=== PATIENT | female | born 1990 | race Caucasian/White ===

== ENCOUNTER 2016-11-06 10:07 | Inpatient (IN) | payer BC ==
[2016-11-06] VITALS (19 sets, daily range): BP systolic 120–208; BP diastolic 58–118
[~2016-11-06] VITALS: Ht 152.4 cm; Wt 96.2 kg
[~2016-11-06 10:07] MED LIST: HYOS0.1217 PO; ONDA-42 SL; ONDA8TAB13 PO; PNT40TEC PO; TRAM50TA2 PO; bcp
--- OUTSIDE RECORDS SUMMARY | 2016-11-06 10:12 | XMS REPORT | Continuity of Care Document ---
Author Author [facility] Organization [facility] Address Unknown Phone Unavailable Care Team Providers Care Primary Health Organisation Manager Name Role Phone NO, LOCAL PHYSICIAN PCP Unavailable Insurance Providers Payer Name Policy Number Subscriber Name Relationship [employer] [id number] Mckayla Lemons 19 Self / Same As Patient Advance Directives Directive Response Recorded Date/Time Advance Directives No 03/07/15 2:20pm Resuscitation Status Full Code 03/07/15 2:20pm Problems Medical Problems Problem Onset Date Status Mesenteric adenitis Unknown Active Epigastric abdominal pain Unknown Active Fever Unknown Active Mesenteric adenitis Unknown Active Epigastric abdominal pain Unknown Active Medications Medication Dose Route Sig Days/Qty Instructions Order Date Discontinued Date Status [bcp] 01/28/14 Active Tramadol Hcl 50 Mg PO EVERY 4HRS PRN PAIN 10 Qty 01/28/14 03/07/15 Discontinued Ondansetron 8 Mg PO EVERY 6 HOURS PRN NAUSEA/VOMITING 10 Qty 01/28/14 03/07/15 Discontinued Ondansetron Hcl 4 Mg SL EVERY 4HRS 10 Qty FOR NAUSEA AND VOMITING Active Pantoprazole Sod 40 Mg PO DAILY 10 Qty 03/07/15 Active Hyoscyamine Sulfate (Levsin) 1-2 Each PO EVERY 4HRS PRN ABDOMINAL PAIN 30 Qty 03/07/15 Active Social History Social History Problem Response Recorded Date/Time Alcohol Use Occasionally Uses 03/07/2015 2:20pm Recreational Drug Use No 03/07/2015 2:20pm Recent Foreign Travel No 03/07/2015 2:20pm Recent Infectious Disease Exposure No 03/07/2015 2:20pm Hospitalization with Isolation Denies 03/07/2015 2:20pm Smoking Status Never a Smoker 03/07/2015 2:20pm Do you dip or chew tobacco? No 03/07/2015 2:20pm Query Response Start Date Stop Date Smoking Status Never a Smoker Hospital Discharge Instructions No hospital discharge instructions. Plan of Care No plan of care. Functional Status No functional status results. Allergies, Adverse Reactions, Alerts Allergen Type Severity Reaction Status Last Updated Sulfa (Sulfonamide Antibiotics) ([id number]) Adverse Reaction Intermediate Active 01/28/14 Immunizations No immunization records. Vital Signs Acute Vital Signs Vital Response Date/Time Temperature (Fahrenheit) 100.3 degrees F (97.6 - 99.5) Temperature (Calculated Celsius) 37.54696 degrees C (36.4 - 37.5) Temperature Source Temporal Pulse Rate (adult) 115 bpm (60 - 90) Respiratory Rate 20 bpm (12 - 24) O2 Sat by Pulse Oximetry 99 % (88 - 100) Blood Pressure 145/86 mm Hg Pain Pain Intensity 8 Height (Feet) 5 feet Height (Inches) 0 inches Height (Calculated Centimeters) 152.803409 cm Weight (Pounds) 180 pounds Weight (Calculated Grams) 55210.627 gm Weight (Calculated Kilograms) 81.004012 kilograms Calculated BMI 35.15 Results Laboratory Results Test Name Result Units Flags Reference Collection Date/Time Result Date/ Time Comments White Blood Count 10.2 10^3/uL 4.3-11.0 03/07/2015 12:25am 03/07/2015 12:37am Red Blood Count 4.78 10^6/uL 4.35-5.85 03/07/2015 12:2503/07/2015 12 :37am Hemoglobin 13.9 G/DL 11.5-16.0 03/07/2015 12:2503/07/2015 12:37am Hematocrit 40 % 35-52 03/07/2015 12:2503/07/2015 12:37am Mean Corpuscular Volume 84 FL 80-99 03/07/2015 12:2503/07/2015 12: 37am Mean Corpuscular Hemoglobin 29 PG 25-34 03/07/2015 12:03/07/2015 12:37am Mean Corpuscular Hemoglobin Concent 35 G/DL 32-36 03/07/2015 12: 12:37am Red Cell Distribution Width 12.5 % 10.0-14.5 03/07/2015 12:2014 12:37am Platelet Count 267 10^3/uL 130-400 03/07/2015 12:03/07/2015 12: 37am Mean Platelet Volume 10.3 FL 7.4-10.4 03/07/2015 12:03/07/2015 12: 37am Neutrophils (%) (Auto) 69 % 42-75 03/07/2015 12:03/07/2015 12: 37am Lymphocytes (%) (Auto) 18 % 12-44 03/07/2015 12:03/07/2015 12: 37am Monocytes (%) (Auto) 12 % 0-12 03/07/2015 12:03/07/2015 12:37am Eosinophils (%) (Auto) 1 % 0-10 03/07/2015 12:03/07/2015 12:37am Basophils (%) (Auto) 0 % 0-10 03/07/2015 12:03/07/2015 12:37am Neutrophils # (Auto) 7.0 X 10^3 1.8-7.8 03/07/2015 12:03/07/2015 12:37am Lymphocytes # (Auto) 1.9 X 10^3 1.0-4.0 03/07/2015 12:03/07/2015 12:37am Monocytes # (Auto) 1.2 X 10^3 H 0.0-1.0 03/07/2015 12:03/07/2015 12: 37am Eosinophils # (Auto) 0.1 10^3/uL 0.0-0.3 03/07/2015 12:03/07/2015 12:37am Basophils # (Auto) 0.0 10^3/uL 0.0-0.1 03/07/2015 12:03/07/2015 12 :37am Sodium Level 137 MMOL/L 135-145 03/07/2015 12:03/07/2015 12:55am Potassium Level 3.3 MMOL/L L 3.6-5.0 03/07/2015 12:03/07/2015 12: 55am Chloride Level 101 MMOL/L 98-107 03/07/2015 12:03/07/2015 12:55am Carbon Dioxide Level 23 MMOL/L 21-32 03/07/2015 12:03/07/2015 12: 55am Blood Urea Nitrogen 13 MG/DL 7-18 03/07/2015 12:03/07/2015 12: 55am Creatinine 0.80 MG/DL 0.60-1.30 03/07/2015 12:03/07/2015 12:55am BUN/Creatinine Ratio 16 03/07/2015 12:03/07/2015 12:55am Estimat Glomerular Filtration Rate > 60 03/07/2015 12:2014 12:55am GFR INTERPRETIVE DATA UNITS FOR ESTIMATED GFR (eGFR): mL/min/1.73 M2 REFERENCE RANGE FOR ESTIMATED GFR (eGFR) eGFR NORMAL eGFR >60 MODERATELY DECREASED eGFR 30-59 SEVERLY DECREASED eGFR 15-29 KIDNEY FAILURE <15 (OR DIALYSIS) Glucose Level 104 MG/DL 70-105 03/07/2015 12:03/07/2015 12:55am Calcium Level 10.4 MG/DL H 8.5-10.1 03/07/2015 12:03/07/2015 12: 55am Magnesium Level 2.0 MG/DL 1.8-2.4 03/07/2015 12:03/07/2015 12: 55am Total Bilirubin 0.6 MG/DL 0.1-1.0 03/07/2015 12:03/07/2015 12: 55am Alkaline Phosphatase 106 U/L 40-136 03/07/2015 12:03/07/2015 12: 55am Aspartate Amino Transf (AST/SGOT) 16 U/L 5-34 03/07/2015 12:2014 12:55am Alanine Aminotransferase (ALT/SGPT) 15 U/L 0-55 03/07/2015 12:08/2015 12:55am Total Protein 7.7 G/DL 6.4-8.2 03/07/2015 12:03/07/2015 12:55am Albumin 4.4 G/DL 3.2-4.5 03/07/2015 12:25am 03/07/2015 12:55am Amylase Level 56 U/L 25-125 03/07/2015 12:25am 03/07/2015 12:55am Lipase 26 U/L 8-78 03/07/2015 12:25am 03/07/2015 12:55am White Blood Count 9.8 10^3/uL 4.3-11.0 03/07/2015 2:55pm 03/07/2015 3: 15pm Red Blood Count 4.33 10^6/uL L 4.35-5.85 03/07/2015 2:55pm 03/07/2015 3: 15pm Hemoglobin 12.5 G/DL 11.5-16.0 03/07/2015 2:55pm 03/07/2015 3:15pm Hematocrit 37 % 35-52 03/07/2015 2:55pm 03/07/2015 3:15pm Mean Corpuscular Volume 85 FL 80-99 03/07/2015 2:pm 03/07/2015 3: 15pm Mean Corpuscular Hemoglobin 29 PG 25-34 03/07/2015 2:55pm 03/07/2015 3: 15pm Mean Corpuscular Hemoglobin Concent 34 G/DL 32-36 03/07/2015 2:55pm 08/2015 3:15pm Red Cell Distribution Width 12.7 % 10.0-14.5 03/07/2015 2:55pm 2014 3:15pm Platelet Count 214 10^3/uL 130-400 03/07/2015 2:55pm 03/07/2015 3:15pm Mean Platelet Volume 10.7 FL H 7.4-10.4 03/07/2015 2:55pm 03/07/2015 3: 15pm Neutrophils (%) (Auto) 79 % H 42-75 03/07/2015 2:55pm 03/07/2015 3:15pm Lymphocytes (%) (Auto) 11 % L 12-44 03/07/2015 2:55pm 03/07/2015 3:15pm Monocytes (%) (Auto) 10 % 0-12 03/07/2015 2:55pm 03/07/2015 3:15pm Eosinophils (%) (Auto) 0 % 0-10 03/07/2015 2:55pm 03/07/2015 3:15pm Basophils (%) (Auto) 0 % 0-10 03/07/2015 2:55pm 03/07/2015 3:15pm Neutrophils # (Auto) 7.7 X 10^3 1.8-7.8 03/07/2015 2:55pm 03/07/2015 3: 15pm Lymphocytes # (Auto) 1.1 X 10^3 1.0-4.0 03/07/2015 2:55pm 03/07/2015 3: 15pm Monocytes # (Auto) 1.0 X 10^3 0.0-1.0 03/07/2015 2:55pm 03/07/2015 3: 15pm Eosinophils # (Auto) 0.0 10^3/uL 0.0-0.3 03/07/2015 2:55pm 03/07/2015 3 :15pm Basophils # (Auto) 0.0 10^3/uL 0.0-0.1 03/07/2015 2:55pm 03/07/2015 3: 15pm Urine Color YELLOW 03/07/2015 3:18pm 03/07/2015 4:00pm Urine Clarity CLEAR 03/07/2015 3:18pm 03/07/2015 4:00pm Urine pH 7 5-9 03/07/2015 3:pm 03/07/2015 4:00pm Urine Specific [place] 1.010 * 1.016-1.022 03/07/2015 3:18pm 2014 4:00pm Urine Protein 1+ * NEGATIVE 03/07/2015 3:pm 03/07/2015 4:00pm Urine Glucose (UA) NEGATIVE NEGATIVE 03/07/2015 3:pm 03/07/2015 4: 00pm Urine RBC (Auto) 1+ * NEGATIVE 03/07/2015 3:18pm 03/07/2015 4:00pm Urine Ketones NEGATIVE NEGATIVE 03/07/2015 3:pm 03/07/2015 4:00pm Urine Nitrite NEGATIVE NEGATIVE 03/07/2015 3:18pm 03/07/2015 4:00pm Urine Bilirubin NEGATIVE NEGATIVE 03/07/2015 3:18pm 03/07/2015 4: 00pm Urine Urobilinogen 1 MG/DL NORMAL 03/07/2015 3:03/07/2015 4:00pm Urine Leukocyte Esterase NEGATIVE NEGATIVE 03/07/2015 3:2014 4:00pm Urine RBC RARE /HPF 03/07/2015 3:03/07/2015 4:00pm Urine WBC RARE /HPF 03/07/2015 3:03/07/2015 4:00pm Urine Bacteria TRACE /HPF 03/07/2015 3:03/07/2015 4:00pm Urine Squamous Epithelial Cells 0-2 /HPF 03/07/2015 3:2014 4:00pm Urine Crystals NONE /LPF 03/07/2015 3:03/07/2015 4:00pm Urine Casts NONE /LPF 03/07/2015 3:03/07/2015 4:00pm Urine Mucus NEGATIVE /LPF 03/07/2015 3:pm 03/07/2015 4:00pm Urine Culture Indicated NO 03/07/2015 3:03/07/2015 4:00pm Sodium Level 135 MMOL/L 135-145 03/07/2015 2:03/07/2015 3:32pm Potassium Level 4.4 MMOL/L 3.6-5.0 03/07/2015 2:03/07/2015 3:32pm Chloride Level 104 MMOL/L 98-107 03/07/2015 2:03/07/2015 3:32pm Carbon Dioxide Level 22 MMOL/L 21-32 03/07/2015 2:03/07/2015 3: 32pm Blood Urea Nitrogen 8 MG/DL 7-18 03/07/2015 2:03/07/2015 3:32pm Creatinine 0.69 MG/DL 0.60-1.30 03/07/2015 2:03/07/2015 3:32pm BUN/Creatinine Ratio 12 03/07/2015 2:03/07/2015 3:32pm Estimat Glomerular Filtration Rate > 60 03/07/2015 2:2014 3:32pm GFR INTERPRETIVE DATA UNITS FOR ESTIMATED GFR (eGFR): mL/min/1.73 M2 REFERENCE RANGE FOR ESTIMATED GFR (eGFR) eGFR NORMAL eGFR >60 MODERATELY DECREASED eGFR 30-59 SEVERLY DECREASED eGFR 15-29 KIDNEY FAILURE <15 (OR DIALYSIS) Glucose Level 99 MG/DL 70-105 03/07/2015 2:55pm 03/07/2015 3:32pm Calcium Level 9.2 MG/DL 8.5-10.1 03/07/2015 2:55pm 03/07/2015 3:32pm Total Bilirubin 0.4 MG/DL 0.1-1.0 03/07/2015 2:55pm 03/07/2015 3:32pm Alkaline Phosphatase 97 U/L 40-136 03/07/2015 2:55pm 03/07/2015 3:32pm Aspartate Amino Transf (AST/SGOT) 37 U/L H 5-34 03/07/2015 2:55pm 2014 3:32pm Alanine Aminotransferase (ALT/SGPT) 27 U/L 0-55 03/07/2015 2:55pm 03/07 3:32pm Total Protein 7.1 G/DL 6.4-8.2 03/07/2015 2:55pm 03/07/2015 3:32pm Albumin 3.9 G/DL 3.2-4.5 03/07/2015 2:55pm 03/07/2015 3:32pm Amylase Level 50 U/L 25-125 03/07/2015 2:55pm 03/07/2015 3:32pm Lipase 22 U/L 8-78 03/07/2015 2:55pm 03/07/2015 3:32pm Monoscreen NEGATIVE NEGATIVE 03/07/2015 2:55pm 03/07/2015 3:23pm Group A Streptococcus Screen NEGATIVE NEGATIVE 03/07/2015 3:02pm 08/2015 3:18pm Procedures No known history of procedures. Encounters Encounter Location Date/Time Departed Emergency Room [facility] 03/07/15 2:07pm Departed Emergency Room [facility] 03/07/15 12:18am Recent Diagnosis
[2016-11-06] MEDS ORDERED: LACTATED RINGERS 1,000 ML IV SCH (10:15)
[2016-11-06] MEDS ORDERED: TERBUTALINE INJ 1 MG/ML (BRETHINE) AMP SC PRN (10:15)
--- NOTE | 2016-11-06 10:22 | History & Physical-OB ---
OB - Chief Complaint & HPI Date Date of Admission: Date of Admission: Nov 06, 2016 at 10:07 Chief Complaint/History OB-Reason for Admission/Chief: Induction of Labor Hx : 1 Hx Para: 0 Expected Date of Delivery: Nov 10, 2016 Gestational Age in Weeks: 39 Gestational Age in Days: 3 Other reason for admission: 26 y/o G1 @ 39w3d who presented today in clinic for JAGUAR (patient of Dr. Vo, seeing me today). Denies complaints other than large increase in facial and hand swelling. Reports pedal edema is somewhat better. Fetus is active, no LOF VB. Occ CTX. complications include class III obesity, likely cHTN (BP 140/80 at 17 wga, intermittently elevated since). 150/97 today in clinic. Denies h/a, vision changes, RUQ pain. History of Labs A+ Antibody neg RI Hep B neg RPR NR HIV neg GC/CT neg/neg GBS neg Allergies and Home Medications Allergies Coded Allergies: Sulfa (Sulfonamide Antibiotics) (Unverified Adverse Reaction, Intermediate , 01/28/14) Home Medications (Reported) Hyoscyamine Sulfate 0.125 Mg/Tab Tab.rapdis #30 1-2 EACH PO Q4H PRN PRN ABDOMINAL PAIN Prescribed by: DEYANIRA GILLIS on 03/07/15 1552 Ondansetron Hcl 4 Mg Tab #10 4 MG SL Q4H FOR NAUSEA AND VOMITING Prescribed by: DEYANIRA GILLIS on 03/07/15 1552 Pantoprazole Sod 40 Mg Tab #10 40 MG PO DAILY Prescribed by: DEYANIRA GILLIS on 03/07/15 1552 OB - History Hx of Present Care: Yes Ultrasounds: Normal mid trimester US Medical Complications: Other (likely cHTN, class III obesity) Information Induced Hypertension: No Maternal Gestational Diabetes: No Hemorrhage: No Obstetrical History Hx : 1 Hx Para: 0 Delivery History Hx Blood Disorders: No Adverse Rxn to Tranfusion: No Patient Past Medical History see above Social History/Family History HIV/AIDS: No Recent Infectious Disease Expo: No Sexually Transmitted Disease: No Alcohol Use: Denies Use Smoking Cessation: Never smoker Immunizations Tetanus Booster (TDap): Less than 5yrs (In september 2016) Date of Influenza Vaccine: Sep 06, 2016 Rubella: immune RPR/VDRL: Negative GBS Status: Negative HBsAG: Negative OB - Admission Exam Physical Exam Vitals: BP 150/97 in clinic, rest of vitals as per nursing admission HEENT: NCAT Heart: Rhythm Normal Lungs: Clear Abdomen: Gravid Extremities: Normal Reflexes: Normal Cervical Dilatation: 1cm Effacement: 25% Station: Ballotable Membranes: Intact Heart Rate: 150's Cruz Scoring Tool (Modified) Dilation (cm): 1-2cm (1) Effacement (%): 31-51% (1) Descent/Station: -3 (0) Cervix Consistency: Medium(1) Cervix Position: Posterior (0) Subtract 1 point for: Nulliparity (-1) Cruz Score: 2 OB - Assessment/Plan/Diagnosis Assessment Assessment: induction of labor Plan Plan: Induction Induction Method: per Misoprostol Protocol Other Plan 26 y/o G1 @ 39w3d with elevated BP in clinic, likely cHTN vs gestational HTN. GBS neg Class III obesity Admit for IOL Cervical ripening with cytotec, SLIV during this When indicated, will induce with pitocin, limit fluids to 100 cc/hr (ordered) CEFM/TOCO Carefully monitor BPs, treat when/if indicated, HELLP labs ordered ASVD Dr. Walters is bridge repair crew person today and has been notified of this patient. RADHA QUINTANA MD Nov 06, 2016 10:21
[2016-11-06] MEDS ORDERED: CATHETER FLUSH 10 ML SYR IV PRN (10:30)
[2016-11-06 10:36] LABS: BASOPHILS % (AUTO) 0 % (0-10); EOSINOPHILS # (AUTO) 0.1 10^3/uL (0.0-0.3); EOSINOPHILS % (AUTO) 0 % (0-10); LYMPHOCYTES % (AUTO) 14 % (12-44); MEAN CORPUSCULAR HEMOGLOBIN 30 PG (25-34); MEAN CORPUSCULAR HGB CONC 34 G/DL (32-36); MEAN CORPUSCULAR VOLUME 88 FL (80-99); MONOCYTES % (AUTO) 7 % (0-12); NEUTROPHILS # (AUTO) 11.5 X 10^3 (1.8-7.8); NEUTROPHILS % (AUTO) 80 % (42-75); PLATELET COUNT 244 10^3/uL (130-400); RED BLOOD COUNT 4.18 10^6/uL (4.35-5.85); RED CELL DISTRIBUTION WIDTH 13.9 % (10.0-14.5); WHITE BLOOD COUNT 14.5 10^3/uL (4.3-11.0)
[2016-11-06 10:50] LABS: BAND NEUTROPHILS 5 %; BASOPHILS % (MANUAL) 0 %; EOSINOPHILS % (MANUAL) 1 %; LYMPHOCYTES % (MANUAL) 7 %; NEUTROPHILS % (MANUAL) 78 %
[2016-11-06 10:53] LABS: ALANINE AMINOTRANSFERASE 20 U/L (0-55); ALBUMIN 3.5 G/DL (3.2-4.5); ANION GAP 8 MMOL/L (5-14); ASPARTATE AMINO TRANSFERASE 20 U/L (5-34); BILIRUBIN,TOTAL 0.3 MG/DL (0.1-1.0); BLOOD UREA NITROGEN 8 MG/DL (7-18); BUN/CREATININE RATIO 14; CALCIUM 9.3 MG/DL (8.5-10.1); CARBON DIOXIDE 20 MMOL/L (21-32); CHLORIDE 108 MMOL/L (98-107); CREATININE SERUM 0.57 MG/DL (0.60-1.30); GFR ESTIMATED > 60; GLUCOSE 86 MG/DL (70-105); LACTATE DEHYDROGENASE 218 U/L (125-220); SODIUM 136 MMOL/L (135-145); TOTAL PROTEIN 6.5 G/DL (6.4-8.2); URIC ACID 4.2 MG/DL (2.6-7.2)
[2016-11-06] MEDS: MISOPROSTOL 100 MCG (CYTOTEC) TAB PV SCH ×3 (11:32→19:39)
[2016-11-06] MEDS ORDERED: CATHETER FLUSH 10 ML SYR IV SCH (14:00)
[2016-11-06] MEDS: SIMETHICONE 80 MG (MYLICON) CHEW PO PRN ×2 (18:00→20:03)
[2016-11-06 19:00] LABS: BILIRUBIN,URINE NEGATIVE (NEGATIVE); KETONES,URINE NEGATIVE (NEGATIVE); LEUKOCYTE ESTERASE ,URINE 3+ (NEGATIVE); NITRITE,URINE NEGATIVE (NEGATIVE); PH,URINE 7 (5-9); PROTEIN,URINE 1+ (NEGATIVE); UROBILINOGEN,URINE NORMAL (NORMAL)
[2016-11-06] MEDS ORDERED: LABETALOL HCL 20 MG/4 ML VIAL IV ONE ×2 (19:00→19:10)
[2016-11-06 19:16] LABS: SQUAMOUS EPITHELIAL CELL,UR 25-50 /HPF
[2016-11-06] MEDS ORDERED: ZOLPIDEM 5 MG (AMBIEN) TAB PO NR (20:15)
[2016-11-07] VITALS (67 sets, daily range): BP systolic 99–165; BP diastolic 51–91
[2016-11-07] MEDS: MISOPROSTOL 100 MCG (CYTOTEC) TAB PV SCH (00:49)
[2016-11-07] MEDS: SIMETHICONE 80 MG (MYLICON) CHEW PO PRN ×2 (04:11→06:31)
[2016-11-07] MEDS: fentaNYL INJECTION 100 MCG/2 ML AMP IVP PRN ×2 (04:11→08:25)
[2016-11-07] MEDS ORDERED: D5 LR IV SOLUTION 1,000 ML IV ONE ×2 (07:44→21:03)
[2016-11-07] MEDS ORDERED: OXYTOCIN/NORMAL SALINE 500 ML IV ONE (07:44)
[2016-11-07] MEDS ORDERED: DINOPROSTONE 10 MG (CERVIDIL) INSERT ONE (08:07)
--- NOTE | 2016-11-07 08:38 | Progress Note-Standard ---
Standard Progress Note Progress Notes/Assess & Plan Date Seen 11/07/16 Assess & Plan/Chief Complaint HD#2 I am taking over care as of 0700 this AM Reviewed with Dr. Walters and RN, pt had 4 doses of cytotec yesterday with minimal cervical change Had episode of hypertension, treated with labetalol last evening (200s/100s) and then large improvement, magnesium not started at that time Today pt is well, denies si/sx severe pre-eclampsia VS - Last 72 Hours, by Label 11/06/16 11/06/16 11/06/16 11/06/16 10:10 10:40 11:00 11:10 Temp 98.3 Pulse 105 92 86 Resp 18 18 18 B/P 167/80 166/74 146/80 O2 Delivery Room Air Room Air Room Air 11/06/16 11/06/16 11/06/16 11/06/16 12:00 12:35 13:00 13:40 Temp 98.4 Pulse 94 84 B/P 138/77 150/78 11/06/16 11/06/16 11/06/16 11/06/16 14:00 14:35 15:00 15:35 Pulse 94 92 Resp 18 18 B/P 146/69 145/74 11/06/16 11/06/16 11/06/16 11/06/16 16:00 16:35 17:00 17:35 Temp 99.3 Pulse 92 99 Resp 18 18 B/P 152/70 145/77 11/06/16 11/06/16 11/06/16 11/06/16 18:00 18:36 18:41 18:51 Pulse 95 84 92 Resp 18 B/P 192/81 197/118 208/103 11/06/16 11/06/16 11/06/16 11/06/16 19:15 19:50 20:00 20:10 Pulse 96 96 99 93 Resp 18 18 18 18 B/P 140/65 157/83 135/61 148/67 11/06/16 11/06/16 11/06/16 11/06/16 20:40 21:00 22:00 23:00 Temp 97.9 98.2 Pulse 85 83 103 Resp 18 18 18 18 B/P 142/65 134/76 120/58 11/07/16 11/07/16 11/07/16/11/17 00:00 01:00 01:08 01:20 Pulse 93 109 103 97 Resp 18 18 18 18 B/P 148/77 139/65 161/73 143/70 11/07/16 11/07/16 11/07/16 11/07/16 02:00 03:00 04:00 05:00 Temp 97.2 Pulse 93 96 89 Resp 18 18 18 18 B/P 141/91 135/85 136/83 11/07/16 11/07/16 06:00 07:00 Pulse 89 Resp 18 18 B/P 136/83 Gen: NAD SVE: 2/40%/ballotable, ludwig catheter placed with 60 cc, cervidil placed FHR: 150/mod gustabo/reactive TOCO: 1-12/07 A/P: 26 y/o G1 @ 39w4d with IOL for cHTN vs gest HTN Severe range BPs once overnight, improved now GBS neg Class III obesity Continue IOL. S/p cytotec x 4 doses with minimal cervical change. Ludwig balloon placed 0815 with cervidil as well. Will retain x 12 hours or as otherwise indicated and then likely start pitocin. Monitor BPs. If severe range again, start magnesium for seizure ppx, or if si/ sx of severe pre-eclampsia. HELLP labs unremarkable. SLIV while cervical ripening; total fluids 100cc/hr when pitocin running. Plan reviewed with pt and family and they are in agreement. [facility] Labs Laboratory Tests 11/06/16 10:18 RADHA QUINTANA MD Nov 07, 2016 08:38
[2016-11-07] MEDS ORDERED: DINOPROSTONE 10 MG (CERVIDIL) INSERT PV NR (09:00)
[2016-11-07] MEDS ORDERED: SUFENTA 1 MCG/ML BUPIVA 0.1% 100 ML ONE (09:48)
[2016-11-07] MEDS ORDERED: BUPIVACAINE 0.25% 30 ML (SENSORCAINE) VIAL ONE (09:57)
[2016-11-07] MEDS: EPIDURAL (SUFENTANIL 1 MCG/ML BUPIVACAINE 0.1%) 100 ML EPI SCH ×2 (10:30→17:21)
[2016-11-07] MEDS ORDERED: LACTATED RINGERS 1,000 ML IV ONE (10:37)
[2016-11-07] MEDS ORDERED: NALOXONE 0.4 MG/ML 1 ML (NARCAN) VIAL IV PRN (10:45)
[2016-11-07] MEDS ORDERED: ONDANSETRON 4 MG/2 ML (SDV) Z0FRAN IV PRN (10:45)
--- NOTE | 2016-11-07 18:54 | Progress Note-Standard ---
Standard Progress Note Progress Notes/Assess & Plan Date Seen 11/07/16 Assess & Plan/Chief Complaint HD#2 Late Entry - 1700 Doing well Epidural in place Carlos out/cervidil out, pitocin infusing No complaints VS - Last 72 Hours, by Label 11/06/16 11/06/16 11/06/16 11/06/16 10:10 10:40 11:00 11:10 Temp 98.3 Pulse 105 92 86 Resp 18 18 18 B/P 167/80 166/74 146/80 O2 Delivery Room Air Room Air Room Air 11/06/16 11/06/16 11/06/16 11/06/16 12:00 12:35 13:00 13:40 Temp 98.4 Pulse 94 84 B/P 138/77 150/78 11/06/16 11/06/16 11/06/16 11/06/16 14:00 14:35 15:00 15:35 Pulse 94 92 Resp 18 18 B/P 146/69 145/74 11/06/16 11/06/16 11/06/16 11/06/16 16:00 16:35 17:00 17:35 Temp 99.3 Pulse 92 99 Resp 18 18 B/P 152/70 145/77 11/06/16 11/06/16 11/06/16 11/06/16 18:00 18:36 18:41 18:51 Pulse 95 84 92 Resp 18 B/P 192/81 197/118 208/103 11/06/16 11/06/16 11/06/16 11/06/16 19:15 19:50 20:00 20:10 Pulse 96 96 99 93 Resp 18 18 18 18 B/P 140/65 157/83 135/61 148/67 11/06/16 11/06/16 11/06/16 11/06/16 20:40 21:00 22:00 23:00 Temp 97.9 98.2 Pulse 85 83 103 Resp 18 18 18 18 B/P 142/65 134/76 120/58 11/07/16 11/07/16 11/07/16 11/07/16 00:00 01:00 01:08 01:20 Pulse 93 109 103 97 Resp 18 18 18 18 B/P 148/77 139/65 161/73 143/70 1/11/11/07/16 11/07/16 11/07/16 02:00 03:00 04:00 05:00 Temp 97.2 Pulse 93 96 89 Resp 18 18 18 18 B/P 141/91 135/85 136/83 11/07/16 11/07/16 11/07/16 11/07/16 06:00 07:00 08:20 09:00 Temp 97.7 Pulse 89 93 84 Resp 18 18 18 18 B/P 136/83 137/81 136/65 O2 Delivery Room Air Room Air 11/07/16 11/07/16 11/07/16 11/07/16 10:00 10:12 10:14 10:17 Pulse 82 91 94 90 Resp 18 20 20 B/P 124/61 136/75 134/73 133/64 Pulse Ox 100 99 O2 Delivery Room Air Room Air Room Air Room Air 11/07/16 11/07/16 11/07/16 11/07/16 10:22 10:25 10:30 10:35 Temp 98.2 Pulse 83 88 85 92 Resp 20 20 18 18 B/P 122/58 139/60 123/60 122/59 Pulse Ox 99 98 99 100 O2 Delivery Room Air Room Air Room Air Room Air 11/07/16 11/07/16 11/07/16 11/07/16 10:40 11:00 11:15 11:30 Pulse 83 85 83 84 Resp 18 18 18 18 B/P 123/60 124/58 109/52 110/56 Pulse Ox 100 100 100 100 O2 Delivery Room Air Room Air Room Air Room Air 11/07/16 11/07/16 11/07/16 11/07/16 11:45 12:00 12:15 12:30 Pulse 77 78 78 97 Resp 18 18 18 18 B/P 108/53 108/51 112/54 107/53 Pulse Ox 100 99 100 100 O2 Delivery Room Air Room Air Room Air Room Air 11/07/16 11/07/16 11/07/16 11/07/16 12:45 13:00 13:15 13:30 Pulse 82 83 95 81 Resp 18 18 18 18 B/P 99/55 111/54 132/60 117/56 Pulse Ox 99 100 100 100 O2 Delivery Room Air Room Air Room Air Room Air 11/07/16 11/07/16 11/07/16 11/07/16 13:45 14:00 14:15 14:30 Pulse 78 90 90 92 Resp 18 18 18 18 B/P 107/53 130/56 133/71 124/58 Pulse Ox 100 100 100 100 O2 Delivery Room Air Room Air Room Air Room Air 11/07/16 11/07/16 11/07/16 11/07/16 14:45 15:00 15:15 15:30 Pulse 86 86 94 90 Resp 18 18 18 18 B/P 124/58 124/58 133/59 125/56 Pulse Ox 100 100 100 100 O2 Delivery Room Air Room Air Room Air Room Air Gen: NAD SVE: /-1, AROM with clear fluid FHR: 150/mod gustabo/reactive TOCO: -02/04 A/P: 26 y/o G1 @ 39w4d with IOL for cHTN vs gest HTN Severe range BPs once overnight, improved vastly after epidural GBS neg Class III obesity Continue IOL. S/p cytotec x 4 doses with minimal cervical change. Carlos balloon placed 0815 with cervidil as well. Out around 1500, started pitocin. Now s/p AROM with clear fluid. Monitor BPs. If severe range again, start magnesium for seizure ppx, or if si/ sx of severe pre-eclampsia. HELLP labs unremarkable. SLIV while cervical ripening; total fluids 100cc/hr when pitocin running. Plan reviewed with pt and family and they are in agreement. [facility] Labs Laboratory Tests 11/06/16 10:18 RADHA QUINTANA MD Nov 07, 2016 18:54
[2016-11-07] MEDS ORDERED: LIDOCAINE/EPI 1%-1:200,000 (XYLOCAINE) 30 ML VIAL ONE (19:12)
[2016-11-07] MEDS ORDERED: MINERAL OIL CONCENTRATE 99.9% 15 ML UDC ONE (19:12)
[2016-11-07] MEDS ORDERED: METOCLOPRAMIDE INJ 10 MG/2 ML (REGLAN) ONE (23:05)
[2016-11-07] MEDS ORDERED: FAMOTIDINE 20MG/2ML IV (PEPCID) ONE (23:05)
[2016-11-07] MEDS ORDERED: CITRIC ACID/SOB CIT (BICITRA) 30 ML UDC ONE (23:05)
[2016-11-07] MEDS ORDERED: ceFAZolin 2 GM IV (SDC ONLY) 50 ML ONE (23:41)
--- NOTE | 2016-11-07 23:46 | Progress Note-Standard ---
Standard Progress Note Progress Notes/Assess & Plan Date Seen 11/07/16 Assess & Plan/Chief Complaint HD#2 Called in as pt has been unchanged since 1700 despite adequate ctx and pitocin up to 30 mU Pt is tired VS - Last 72 Hours, by Label 11/06/16 11/06/16 11/06/16 11/06/16 10:10 10:40 11:00 11:10 Temp 98.3 Pulse 105 92 86 Resp 18 18 18 B/P 167/80 166/74 146/80 O2 Delivery Room Air Room Air Room Air 11/06/16 11/06/16 11/06/16 11/06/16 12:00 12:35 13:00 13:40 Temp 98.4 Pulse 94 84 B/P 138/77 150/78 11/06/16 11/06/16 11/06/16 11/06/16 14:00 14:35 15:00 15:35 Pulse 94 92 Resp 18 18 B/P 146/69 145/74 11/06/16 11/06/16 11/06/16 11/06/16 16:00 16:35 17:00 17:35 Temp 99.3 Pulse 92 99 Resp 18 18 B/P 152/70 145/77 11/06/16 11/06/16 11/06/16 11/06/16 18:00 18:36 18:41 18:51 Pulse 95 84 92 Resp 18 B/P 192/81 197/118 208/103 11/06/16 11/06/16 11/06/16 11/06/16 19:15 19:50 20:00 20:10 Pulse 96 96 99 93 Resp 18 18 18 18 B/P 140/65 157/83 135/61 148/67 11/06/16 11/06/16 11/06/16 11/06/16 20:40 21:00 22:00 23:00 Temp 97.9 98.2 Pulse 85 83 103 Resp 18 18 18 18 B/P 142/65 134/76 120/58 11/07/16 11/07/16 11/07/16 11/07/16 00:00 01:00 01:08 01:20 Pulse 93 109 103 97 Resp 18 18 18 18 B/P 148/77 139/65 161/73 143/70 11/07/16 11/07/16 11/07/16 1/11/17 02:00 03:00 04:00 05:00 Temp 97.2 Pulse 93 96 89 Resp 18 18 18 18 B/P 141/91 135/85 136/83 11/07/16 11/07/16 11/07/16 11/07/16 06:00 07:00 08:20 09:00 Temp 97.7 Pulse 89 93 84 Resp 18 18 18 18 B/P 136/83 137/81 136/65 O2 Delivery Room Air Room Air 11/07/16 11/07/16 11/07/16 11/07/16 10:00 10:12 10:14 10:17 Pulse 82 91 94 90 Resp 18 20 20 B/P 124/61 136/75 134/73 133/64 Pulse Ox 100 99 O2 Delivery Room Air Room Air Room Air Room Air 11/07/16 11/07/16 11/07/16 11/07/16 10:22 10:25 10:30 10:35 Temp 98.2 Pulse 83 88 85 92 Resp 20 20 18 18 B/P 122/58 139/60 123/60 122/59 Pulse Ox 99 98 99 100 O2 Delivery Room Air Room Air Room Air Room Air 11/07/16 11/07/16 11/07/16 11/07/16 10:40 11:00 11:15 11:30 Pulse 83 85 83 84 Resp 18 18 18 18 B/P 123/60 124/58 109/52 110/56 Pulse Ox 100 100 100 100 O2 Delivery Room Air Room Air Room Air Room Air 11/07/16 11/07/16 11/07/16 11/07/16 11:45 12:00 12:15 12:30 Pulse 77 78 78 97 Resp 18 18 18 18 B/P 108/53 108/51 112/54 107/53 Pulse Ox 100 99 100 100 O2 Delivery Room Air Room Air Room Air Room Air 11/07/16 11/07/16 11/07/16 11/07/16 12:45 13:00 13:15 13:30 Pulse 82 83 95 81 Resp 18 18 18 18 B/P 99/55 111/54 132/60 117/56 Pulse Ox 99 100 100 100 O2 Delivery Room Air Room Air Room Air Room Air 11/07/16 11/07/16 11/07/16 11/07/16 13:45 14:00 14:15 14:30 Pulse 78 90 90 92 Resp 18 18 18 18 B/P 107/53 130/56 133/71 124/58 Pulse Ox 100 100 100 100 O2 Delivery Room Air Room Air Room Air Room Air 11/07/16 11/07/16 11/07/16 11/07/16 14:45 15:00 15:15 15:30 Pulse 86 86 94 90 Resp 18 18 18 18 B/P 124/58 124/58 133/59 125/56 Pulse Ox 100 100 100 100 O2 Delivery Room Air Room Air Room Air Room Air 11/07/16 11/07/16 11/07/16 11/07/16 15:45 16:00 16:15 16:30 Temp 98.6 Pulse 88 85 86 94 Resp 18 18 18 18 B/P 135/63 135/65 131/63 125/84 Pulse Ox 100 99 99 99 O2 Delivery Room Air Room Air Room Air Room Air 11/07/16 11/07/16 11/07/16 11/07/16 16:45 17:00 17:15 17:30 Pulse 88 80 89 89 Resp 18 18 18 18 B/P 129/66 139/72 122/59 124/60 Pulse Ox 98 100 98 99 O2 Delivery Room Air Room Air Room Air Room Air 11/07/16 11/07/16 11/07/16 11/07/16 17:45 18:15 18:30 18:45 Pulse 77 82 84 88 Resp 18 18 18 18 B/P 127/60 132/62 152/76 133/71 Pulse Ox 99 99 O2 Delivery Room Air Room Air Room Air Room Air 11/07/16 11/07/16 11/07/16 11/07/16 19:00 19:15 19:30 19:45 Temp 98.5 99.2 Pulse 78 82 85 86 Resp 18 18 18 18 B/P 152/66 138/84 156/66 165/87 O2 Delivery Room Air Room Air Room Air Room Air 11/07/16 11/07/16 11/07/16 11/07/16 20:00 20:15 20:30 20:45 Pulse 76 82 96 100 Resp 18 18 18 18 B/P 139/78 146/82 139/69 142/75 Pulse Ox 99 98 99 O2 Delivery Room Air Room Air Room Air Room Air 111/07/16 11/07/16 11/07/16 21:00 21:15 21:30 21:45 Pulse 96 89 83 98 Resp 18 18 18 18 B/P 136/72 135/74 147/73 145/75 Pulse Ox 99 98 100 100 O2 Delivery Room Air Room Air Room Air Room Air 11/07/16 11/07/16 22:00 22:15 Pulse 88 71 Resp 18 18 B/P 141/69 Pulse Ox 100 99 O2 Delivery Room Air Room Air Gen: NAD SVE: /-1 (unchanged from last exam by myself at 1700) FHR: 150/mod gustabo/nonreactive currently, +accel with scalp stim A/P: 26 y/o G1 @ 39w4d with IOL for gHTN vs cHTN, GBS neg, now with arrest of active phase of labor, suspect CPD. Discussed with pt and family that despite almost 7 hours of pitocin and adequate appearing contractions, she had not made progress (and I am especially concerned given the lack of descent). Discussed my recommendation to proceed with abdominal delivery at this time. Discussed risks including bleeding, infection, damage to surrounding structures on both mother and fetus. Pt and family understand and agree. Will call OR. Ancef 2g prior to skin incision. status is reassuring, do not need to proceed with emergent CD at this time. Labs Laboratory Tests 11/06/16 10:18 RADHA QUINTANA MD Nov 07, 2016 23:46
--- NOTE | 2016-11-07 23:52 | Cesarean Section Operative ---
Procedure Procedure Note Date Of Procedure: November 08, 2016 Pre-operative Diagnosis: Micaela Flowers is a 26 y/o G1 @ 39w4d with induction of labor for chronic hypertension vs gestational hypertension, arrest of active phase of labor, class III obesity, GBS neg Post-operative Diagnosis: Same Procedure: Primary low transverse section Physician: Abby Sims MD Rectification Printer: Oziel Wu [id number] Estimated blood loss: 700 mL Disposition: Recovery room, stable Specimens: Cord blood to lab Findings: Viable female infant, Apgars 8/9, weight 8lb4oz, occiput posterior presentation , intact placenta, 3vc, normal appearing uterus, tubes, and ovaries. Indications:Micaela Flowers is a 26 y/o G1 @ 39w4d who presented at 39w3d for IOL for chronic hypertension versus gestational hypertension, worsening at term. Her cervix was ripened with four doses of cytotec and then a ludwig bulb with cervidil. This fell out and she was found to be 6cm. Pitocin was started and AROM was performed with clear fluid. Over the next seven hours, she was noted to have no change in dilatation or descent with the same examiner and was counseled on need for abdominal delivery. Procedure Details: The patient was seen in pre-op and the procedure was discussed with the patient in full, including the risks, benefits, and alternatives. All questions were answered. The patient was taken to the operating room and a time out was performed, verifying patient and procedure. After spinal anesthesia was placed by our anesthesia colleagues, the patient was placed in the dorsal supine with leftward tilt for uterine displacement. Her abdomen was then prepped and draped in the typical sterile fashion. A Pfannenstiel skin incision was made using a scalpel and carried down through the underlying fascia. The fascia was incised in the midline and tented up using Janell clamps. On both the inferior and superior fascia side the rectus muscle was dissected off bluntly and sharply using Meyer scissors. The peritoneum was identified and entered bluntly in the midline. This was then stretched laterally using manual strength. After entering the abdominal cavity and confirming lack of intraperitoneal adhesions, an extra-large Osman retractor was placed and the lower uterine segment was visualized. A bladder flap was created with the use of Metzenbaum scissors. A scalpel was utilized to make a low transverse uterine incision. The infant's head was grasped and brought to the level of the incision. Fundal pressure was applied and infant was delivered without difficulty. Mouth and nares were suctioned with bulb suction. After the umbilical cord was clamped and cut, the was handed to the pediatric team as she was noted not to be crying at this time. A sample of cord blood was then obtained. The placenta was delivered intact via uterine massage. The uterus was cleared of all clots and debris. The uterine incision was closed using 0 Vicryl in a running locked fashion. A second imbricated layer was placed using 0 Vicryl in a running fashion as well. The uterus was flexed forward and the posterior rectouterine space was inspected and cleared of all clots and debris. Again the hysterotomy site was examined and hemostasis was observed. The bilateral tubes and ovaries appeared normal. A final check of the uterine incision showed it to be hemostatic. The peritoneum was closed using 3-0 Vicryl in a running fashion. The fascia was closed with 0 Vicryl in a running fashion. The subcutaneous space was hemostatic, and irrigated. The subcutaneous space was closed with 3-0 Vicryl in several single interrupted stitches. The skin was then closed using 4- 0 Monocryl in a running subcuticular fashion. The skin edges were reapproximated together and were hemostatic. A pressure dressing was applied. All sponge, lap and needle counts were correct at the end of the procedure per nursing. Vitals - Labs Vital Signs - I&O Vital Signs Date Time Temp Pulse Resp B/P Pulse Ox O2 Delivery O2 Flow Rate FiO2 11/07/16 22:15 71 18 141/69 99 Room Air 11/07/16 22:00 88 18 100 Room Air 11/07/16 21:45 98 18 145/75 100 Room Air 11/07/16 21:30 83 18 147/73 100 Room Air 11/07/16 21:15 89 18 135/74 98 Room Air 11/07/16 21:00 96 18 136/72 99 Room Air 11/07/16 20:45 100 18 142/75 99 Room Air 11/07/16 20:30 96 18 139/69 98 Room Air 11/07/16 20:15 82 18 146/82 99 Room Air 11/07/16 20:00 76 18 139/78 Room Air 11/07/16 19:45 86 18 165/87 Room Air 11/07/16 19:30 85 18 156/66 Room Air 11/07/16 19:15 99.2 82 18 138/84 Room Air 11/07/16 19:00 98.5 78 18 152/66 Room Air 11/07/16 18:45 88 18 133/71 Room Air 11/07/16 18:30 84 18 152/76 Room Air 11/07/16 18:15 82 18 132/62 99 Room Air 11/07/16 17:45 77 18 127/60 99 Room Air 11/07/16 17:30 89 18 124/60 99 Room Air 11/07/16 17:15 89 18 122/59 98 Room Air 11/07/16 17:00 80 18 139/72 100 Room Air 11/07/16 16:45 88 18 129/66 98 Room Air 11/07/16 16:30 94 18 125/84 99 Room Air 11/07/16 16:15 98.6 86 18 131/63 99 Room Air 11/07/16 16:00 85 18 135/65 99 Room Air 11/07/16 15:45 88 18 135/63 100 Room Air 11/07/16 15:30 90 18 125/56 100 Room Air 11/07/16 15:15 94 18 133/59 100 Room Air 11/07/16 15:00 86 18 124/58 100 Room Air 11/07/16 14:45 86 18 124/58 100 Room Air 11/07/16 14:30 92 18 124/58 100 Room Air 11/07/16 14:15 90 18 133/71 100 Room Air 11/07/16 14:00 90 18 130/56 100 Room Air 11/07/16 13:45 78 18 107/53 100 Room Air 11/07/16 13:30 81 18 117/56 100 Room Air 11/07/16 13:15 95 18 132/60 100 Room Air 11/07/16 13:00 83 18 111/54 100 Room Air 11/07/16 12:45 82 18 99/55 99 Room Air 11/07/16 12:30 97 18 107/53 100 Room Air 11/07/16 12:15 78 18 112/54 100 Room Air 11/07/16 12:00 78 18 108/51 99 Room Air 11/07/16 11:45 77 18 108/53 100 Room Air 11/07/16 11:30 84 18 110/56 100 Room Air 11/07/16 11:15 83 18 109/52 100 Room Air 11/07/16 11:00 85 18 124/58 100 Room Air 11/07/16 10:40 83 18 123/60 100 Room Air 11/07/16 10:35 98.2 92 18 122/59 100 Room Air 11/07/16 10:30 85 18 123/60 99 Room Air 11/07/16 10:25 88 20 139/60 98 Room Air 11/07/16 10:22 83 20 122/58 99 Room Air 11/07/16 10:17 90 20 133/64 99 Room Air 11/07/16 10:14 94 134/73 Room Air 11/07/16 10:12 91 20 136/75 100 Room Air 11/07/16 10:00 82 18 124/61 Room Air 11/07/16 09:00 84 18 136/65 Room Air 11/07/16 08:20 97.7 93 18 137/81 Room Air 11/07/16 07:00 18 11/07/16 06:00 89 18 136/83 11/07/16 05:00 89 18 136/83 11/07/16 04:00 97.2 96 18 135/85 11/07/16 03:00 93 18 141/91 11/07/16 02:00 18 11/07/16 01:20 97 18 143/70 11/07/16 01:08 103 18 161/73 11/07/16 01:00 109 18 139/65 11/07/16 00:00 93 18 148/77 I & O 11/07/16 07:00 Intake Total 240 ml Balance 240 ml Labs Microbiology 11/06/16 Urine Culture - Preliminary, Resulted Probable Enterococcus Species ABBY SIMS MD Nov 07, 2016 23:52 ABBY SIMS MD Nov 07, 2016 23:52
[2016-11-07] MEDS ORDERED: fentaNYL INJECTION 100 MCG/2 ML AMP ONE (23:57)
[2016-11-08] MEDS ORDERED: ONDANSETRON 4 MG/2 ML (SDV) Z0FRAN ONE (00:06)
[2016-11-08] MEDS ORDERED: KETAMINE HCL 100 MG/ML 5 ML VIAL ONE (00:07)
[2016-11-08] MEDS ORDERED: OXYC-197 PO (00:07)
[2016-11-08] MEDS ORDERED: IBUP-1773 PO (00:07)
[2016-11-08] MEDS ORDERED: DOCU-143 PO (00:07)
--- NOTE | 2016-11-08 00:09 | Discharge Inst-Women's Service ---
Discharge Inst-Women's Serv Depart Medication/Instructions New, Converted or Re-Newed RX: RX on Chart (and transmitted to pharmacy) Final Diagnosis Chronic hypertension at term, arrest of active phase of labor, failed IOL, primary CD Consults/Follow Up Additional Follow Up: Yes Orders/Referrals 7-[address] Vo for incision/BP check [address] Vo Activity Activity: Activity as Tolerated (no strenuous activity, no heavy lifting > 10 lb for 2 weeks) Driving Instructions: No Driving for 1 Week (or while taking narcotic pain medications) NO SMOKING: NO SMOKING Nothing Inside Vagina: No Douching, No [place], No Tampons Diet Discharge Diet: No Restrictions Symptoms to Report to : Swelling Increased, Bleeding Excessive, Eyesight Changes, Pain Increased, Fever Over 101 Degrees F, Pain/Pressure in Chest ( ), Vaginal Bleeding Increase, Dizziness/Fainting, Nausea/Vomiting, Shortness of Breath Also call for persistent headache, right upper quadrant abdominal pain, or any concerns For Any Problems or Questions: Contact Your Physician Skin/Wound Care Infection Signs and Symptoms: Increased Redness, Foul Odor of Wound, Increased Drainage Operative Area Clean and Dry: Keep Incision Clean/Dry Stitches/[place]/Dermabond: Dermabond, Care of Stitches Bathing Instructions: RADHA Lindo MD Nov 08, 2016 00:09
[2016-11-08] MEDS ORDERED: FAMOTIDINE 20MG/2ML IV (PEPCID) IV ONE (00:15)
[2016-11-08] MEDS ORDERED: METOCLOPRAMIDE INJ 10 MG/2 ML (REGLAN) IV ONE (00:15)
[2016-11-08] MEDS ORDERED: CITRIC ACID/SOB CIT (BICITRA) 30 ML UDC PO ONE (00:15)
[2016-11-08 00:20] VITALS: BP 142/74
[2016-11-08] MEDS ORDERED: fentaNYL INJECTION 100 MCG/2 ML AMP ONE (00:40)
[2016-11-08] MEDS ORDERED: diphenhydrAMINE 50 MG/ML INJ (BENADRYL) ONE (00:48)
[2016-11-08] MEDS ORDERED: BUPIVACAINE 0.5% 30 ML (SENSORCAINE) VIAL ONE (01:10)
[2016-11-08] MEDS ORDERED: LIDOCAINE PF 2% 10 ML (XYLOCAINE) AMP ONE (01:10)
[2016-11-08] MEDS ORDERED: OXYTOCIN/NORMAL SALINE 1,000 ML IV ONE (01:10)
[2016-11-08] MEDS ORDERED: KETOROLAC 30 MG/ML VIAL ONE (01:11)
[2016-11-08] MEDS ORDERED: OXYTOCIN/NORMAL SALINE 500 ML IV SCH (02:42)
[2016-11-08] MEDS ORDERED: ONDANSETRON 4 MG/2 ML (SDV) Z0FRAN IVP PRN (02:45)
[2016-11-08] MEDS ORDERED: TETANUS,DIPTH,PERTUSS P/F (BOOSTRIX) 0.5 ML VIAL IM SCH (02:45)
[2016-11-08] MEDS ORDERED: MEASLES,MUMPS,RUBELLA 1 EA INJ SC SCH (02:45)
[2016-11-08] MEDS ORDERED: ONDANSETRON 4 MG (ZOFRAN) ORAL DISSOLVE TAB SL SCH (02:45)
[2016-11-08] MEDS: KETOROLAC 30 MG/ML VIAL IVP SCH ×4 (02:45→18:27)
[2016-11-08] MEDS ORDERED: oxyCODONE/APAP 5/325MG (PERCOCET 5) TABLET PO PRN (02:45)
[2016-11-08 03:01] VITALS: BP 130/77
[2016-11-08] MEDS: oxyCODONE/APAP 5/325MG (PERCOCET 5) TABLET PO SCH ×3 (03:38→15:41)
[2016-11-08] MEDS ORDERED: CATHETER FLUSH 10 ML SYR IV SCH (06:00)
[2016-11-08 06:38] LABS: BASOPHILS % (AUTO) 0 % (0-10); EOSINOPHILS % (AUTO) 0 % (0-10); LYMPHOCYTES # (AUTO) 1.9 X 10^3 (1.0-4.0); LYMPHOCYTES % (AUTO) 8 % (12-44); MEAN CORPUSCULAR HEMOGLOBIN 30 PG (25-34); MEAN CORPUSCULAR HGB CONC 34 G/DL (32-36); MEAN CORPUSCULAR VOLUME 89 FL (80-99); MEAN PLATELET VOLUME 11.2 FL (7.4-10.4); MONOCYTES # (AUTO) 1.7 X 10^3 (0.0-1.0); MONOCYTES % (AUTO) 8 % (0-12); NEUTROPHILS # (AUTO) 18.7 X 10^3 (1.8-7.8); NEUTROPHILS % (AUTO) 84 % (42-75); PLATELET COUNT 216 10^3/uL (130-400); RED BLOOD COUNT 3.68 10^6/uL (4.35-5.85); WHITE BLOOD COUNT 22.3 10^3/uL (4.3-11.0)
[2016-11-08 08:40] VITALS: BP 151/80
[2016-11-08] MEDS ORDERED: PANTOPRAZOLE 40 MG (PROTONIX) TAB PO SCH (09:00)
[2016-11-08] MEDS ORDERED: FERROUS SULF 325 MG (IRON) TAB PO SCH (09:00)
[2016-11-08] MEDS: DOCUSATE SODIUM 100 MG (COLACE) CAP PO SCH ×2 (09:05→20:52)
[2016-11-08 12:55] VITALS: BP 141/84
[2016-11-08] MEDS: IBUPROFEN 600 MG (MOTRIN) TAB PO SCH (18:38)
[2016-11-08 18:46] VITALS: BP 153/91
[2016-11-08 20:50] VITALS: BP 152/95
[2016-11-08] MEDS: NITROFURANTOIN 100 MG (MACROBID) CAPSULE PO SCH (20:52)
[2016-11-09] MEDS: IBUPROFEN 600 MG (MOTRIN) TAB PO SCH ×5 (00:20→23:55)
[2016-11-09] MEDS: oxyCODONE/APAP 5/325MG (PERCOCET 5) TABLET PO SCH ×2 (00:20→09:25)
[2016-11-09 00:45] VITALS: BP 140/83
[2016-11-09 03:40] VITALS: BP 137/86
[2016-11-09] MEDS ORDERED: IBUPROFEN 800 MG (MOTRIN) TAB PO SCH (06:00)
[2016-11-09] MEDS ORDERED: NITR100C10 PO (09:07)
--- NOTE | 2016-11-09 09:16 | Postpartum Progress Note ---
Post Op Post-operative Day #1 Subjective: Patient is without complaints. Ambulating, voiding after ludwig removed. Tolerating a regular diet without nausea or vomiting. Normal lochia. Pain is well controlled with oral pain medications. Passing flatus. Breast feeding. Denies si/sx pre-eclampsia other than swelling in bilateral LE. Objective: VS - Last 72 Hours, by Label 11/06/16 11/06/16 11/06/16 11/06/16 10:10 10:40 11:00 11:10 Temp 98.3 Pulse 105 92 86 Resp 18 18 18 B/P 167/80 166/74 146/80 O2 Delivery Room Air Room Air Room Air 11/06/16 11/06/16 11/06/16 11/06/16 12:00 12:35 13:00 13:40 Temp 98.4 Pulse 94 84 B/P 138/77 150/78 11/06/16 11/06/16 11/06/16 11/06/16 14:00 14:35 15:00 15:35 Pulse 94 92 Resp 18 18 B/P 146/69 145/74 11/06/16 11/06/16 11/06/16 11/06/16 16:00 16:35 17:00 17:35 Temp 99.3 Pulse 92 99 Resp 18 18 B/P 152/70 145/77 11/06/16 11/06/16 11/06/16 11/06/16 18:00 18:36 18:41 18:51 Pulse 95 84 92 Resp 18 B/P 192/81 197/118 208/103 11/06/16 11/06/16 11/06/16 11/06/16 19:15 19:50 20:00 20:10 Pulse 96 96 99 93 Resp 18 18 18 18 B/P 140/65 157/83 135/61 148/67 11/06/16 11/06/16 11/06/16 11/06/16 20:40 21:00 22:00 23:00 Temp 97.9 98.2 Pulse 85 83 103 Resp 18 18 18 18 B/P 142/65 134/76 120/58 11/07/16 11/07/16 11/07/16 11/07/16 00:00 01:00 01:08 01:20 Pulse 93 109 103 97 Resp 18 18 18 18 B/P 148/77 139/65 161/73 143/70 11/07/16 11/07/16 11/07/16 11/07/16 02:00 03:00 04:00 05:00 Temp 97.2 Pulse 93 96 89 Resp 18 18 18 18 B/P 141/91 135/85 136/83 11/07/16 11/07/16 11/07/16 11/07/16 06:00 07:00 08:20 09:00 Temp 97.7 Pulse 89 93 84 Resp 18 18 18 18 B/P 136/83 137/81 136/65 O2 Delivery Room Air Room Air 11/07/16 11/07/16 11/07/16 11/07/16 10:00 10:12 10:14 10:17 Pulse 82 91 94 90 Resp 18 20 20 B/P 124/61 136/75 134/73 133/64 Pulse Ox 100 99 O2 Delivery Room Air Room Air Room Air Room Air 11/07/16 11/07/16 11/07/16 11/07/16 10:22 10:25 10:30 10:35 Temp 98.2 Pulse 83 88 85 92 Resp 20 20 18 18 B/P 122/58 139/60 123/60 122/59 Pulse Ox 99 98 99 100 O2 Delivery Room Air Room Air Room Air Room Air 11/07/16 11/07/16 11/07/16 11/07/16 10:40 11:00 11:15 11:30 Pulse 83 85 83 84 Resp 18 18 18 18 B/P 123/60 124/58 109/52 110/56 Pulse Ox 100 100 100 100 O2 Delivery Room Air Room Air Room Air Room Air 11/07/16 11/07/16 11/07/16 11/07/16 11:45 12:00 12:15 12:30 Pulse 77 78 78 97 Resp 18 18 18 18 B/P 108/53 108/51 112/54 107/53 Pulse Ox 100 99 100 100 O2 Delivery Room Air Room Air Room Air Room Air 11/07/16 11/07/16 11/07/16 11/07/16 12:45 13:00 13:15 13:30 Pulse 82 83 95 81 Resp 18 18 18 18 B/P 99/55 111/54 132/60 117/56 Pulse Ox 99 100 100 100 O2 Delivery Room Air Room Air Room Air Room Air 11/07/16 11/07/16 11/07/16 11/07/16 13:45 14:00 14:15 14:30 Pulse 78 90 90 92 Resp 18 18 18 18 B/P 107/53 130/56 133/71 124/58 Pulse Ox 100 100 100 100 O2 Delivery Room Air Room Air Room Air Room Air 11/07/16 11/07/16 11/07/16 11/07/16 14:45 15:00 15:15 15:30 Pulse 86 86 94 90 Resp 18 18 18 18 B/P 124/58 124/58 133/59 125/56 Pulse Ox 100 100 100 100 O2 Delivery Room Air Room Air Room Air Room Air 11/07/16 11/07/16 11/07/16 11/07/16 15:45 16:00 16:15 16:30 Temp 98.6 Pulse 88 85 86 94 Resp 18 18 18 18 B/P 135/63 135/65 131/63 125/84 Pulse Ox 100 99 99 99 O2 Delivery Room Air Room Air Room Air Room Air 11/07/16 11/07/16 11/07/16 11/07/16 16:45 17:00 17:15 17:30 Pulse 88 80 89 89 Resp 18 18 18 18 B/P 129/66 139/72 122/59 124/60 Pulse Ox 98 100 98 99 O2 Delivery Room Air Room Air Room Air Room Air 11/07/16 11/07/16 11/07/16 11/07/16 17:45 18:15 18:30 18:45 Pulse 77 82 84 88 Resp 18 18 18 18 B/P 127/60 132/62 152/76 133/71 Pulse Ox 99 99 O2 Delivery Room Air Room Air Room Air Room Air 11/07/16 11/07/16 11/07/16 11/07/16 19:00 19:15 19:30 19:45 Temp 98.5 99.2 Pulse 78 82 85 86 Resp 18 18 18 18 B/P 152/66 138/84 156/66 165/87 O2 Delivery Room Air Room Air Room Air Room Air 11/07/16 11/07/16 11/07/16 11/07/16 20:00 20:15 20:30 20:45 Pulse 76 82 96 100 Resp 18 18 18 18 B/P 139/78 146/82 139/69 142/75 Pulse Ox 99 98 99 O2 Delivery Room Air Room Air Room Air Room Air 11/07/16 11/07/16 11/07/16 11/07/16 21:00 21:15 21:30 21:45 Pulse 96 89 83 98 Resp 18 18 18 18 B/P 136/72 135/74 147/73 145/75 Pulse Ox 99 98 100 100 O2 Delivery Room Air Room Air Room Air Room Air 11/07/16 11/07/16 11/07/16 11/07/16 22:00 22:15 22:30 22:45 Pulse 88 71 73 95 Resp 18 18 18 18 B/P 141/69 144/71 124/59 Pulse Ox 100 99 99 99 O2 Delivery Room Air Room Air Room Air Room Air 11/07/16 11/07/16 11/08/16 11/08/16 23:00 23:15 00:20 03:01 Temp 98.2 Pulse 96 92 73 87 Resp 18 18 18 18 B/P 132/90 149/78 142/74 130/77 Pulse Ox 100 100 97 O2 Delivery Room Air Room Air Room Air Room Air 11/08/16 11/08/16 11/08/16 11/08/16 08:40 12:55 18:46 20:50 Temp 98.0 98.2 98.6 98.3 Pulse 73 103 94 81 Resp 18 18 18 18 B/P 151/80 141/84 153/91 152/95 Pulse Ox 99 100 100 O2 Delivery Room Air 11/09/16 11/09/16 00:45 03:40 Temp 98.4 98.2 Pulse 78 80 Resp 18 18 B/P 140/83 137/86 Pulse Ox 99 99 O2 Delivery Room Air Room Air Physical Exam: General - Alert and oriented, no apparent distress Abdomen - Soft, appropriately tender to palpation, non-distended, fundus firm at umbilicus Incision - clean, dry and intact; no erythema or induration, no drainage Extremities - 2+ pitting edema extending to mid tibial region, negative Mario Alberto's bilaterally labs - see yesterday, plts stable, hgb 11 micro - UTI, sensitive to nitrofurantoin Assessment: 26 y/o post-operative day # 1, status post PLTCS for arrest of active phase of labor after IOL. Recovering well, hemodynamically stable Gestational HTN vs chronic HTN UTI Plan: Routine post-operative care. Encourage breast feeding. Encourage ambulation. VTE prophylaxis: SCDs. Plan for discharge POD#2 or 3. Discussed BPs - mostly 130s-140s/80s-90s, will start anti-hypertensive therapy if consistently 150s/100s. Will need to see Dr. Vo in the office next for BP/incision check. Macrobid for UTI Vitals - Labs Vital Signs - I&O Vital Signs Date Time Temp Pulse Resp B/P Pulse Ox O2 Delivery O2 Flow Rate FiO2 11/09/16 03:40 98.2 80 18 137/86 99 Room Air 11/09/16 00:45 98.4 78 18 140/83 99 Room Air 11/08/16 20:50 98.3 81 18 152/95 100 Room Air 11/08/16 18:46 98.6 94 18 153/91 11/08/16 12:55 98.2 103 18 141/84 100 I & O 11/09/16 07:00 Intake Total 2150 ml Output Total 1500 ml Balance 650 ml Labs Microbiology 11/06/16 Urine Culture - Final, Complete Enterococcus Faecalis RADHA QUINTANA MD Nov 09, 2016 09:16
[2016-11-09] MEDS: PANTOPRAZOLE 40 MG (PROTONIX) TAB PO SCH (09:25)
[2016-11-09] MEDS: NITROFURANTOIN 100 MG (MACROBID) CAPSULE PO SCH ×2 (09:25→21:07)
[2016-11-09] MEDS: DOCUSATE SODIUM 100 MG (COLACE) CAP PO SCH ×2 (09:25→19:55)
[2016-11-09 12:11] VITALS: BP 135/74
--- NOTE | 2016-11-09 14:09 | Anesthesia-Regional Post-Op ---
Regional Patient Condition Mental Status: Alert, Oriented x3 Circulation: Same as Pre-Op Headache: Absent Sensation: Full Recovery Motor Block: Absent Post Op Complications Complications None Follow Up Care/Instructions Patient Instructions None needed. Anesthesia/Patient Condition Patient is doing well, no complaints, stable vital signs, no apparent adverse anesthesia problems. No complications reported per nursing. AMY JULIO CRNA Nov 09, 2016 14:09
[2016-11-09 15:28] VITALS: BP 157/89
[2016-11-09 20:00] VITALS: BP 139/61
[2016-11-10 00:25] VITALS: BP 150/87
[2016-11-10 04:18] VITALS: BP 144/84
[2016-11-10] MEDS: IBUPROFEN 600 MG (MOTRIN) TAB PO SCH ×2 (06:39→11:47)
[2016-11-10 09:00] VITALS: BP 144/87
--- NOTE | 2016-11-10 09:11 | Postpartum Progress Note ---
Post Op Post-operative Day #2 s/p PLTCS. Induction due to preeclampsia. Subjective: Patient is without complaints. Ambulating, voiding after ludwig removed. Tolerating a regular diet without nausea or vomiting. Normal lochia. Pain is well controlled with oral pain medications. Passing flatus. continues to have some edema but states better than yesterday +. Objective: Vital Signs 11/10/16 04:18 Temp 97.8 Pulse 69 Resp 18 B/P 144/84 Pulse Ox 99 O2 Delivery Room Air Laboratory Tests Test 11/08/16 05:37 Range/Units Basophils # (Auto) 0.0 0.0-0.1 10^3/uL Basophils (%) (Auto) 0 0-10 % Eosinophils # (Auto) 0.0 0.0-0.3 10^3/uL Eosinophils (%) (Auto) 0 0-10 % Hematocrit 33 L 35-52 % Hemoglobin 11.0 L 11.5-16.0 G/DL Lymphocytes # (Auto) 1.9 1.0-4.0 X 10^3 Lymphocytes (%) (Auto) 8 L 12-44 % Mean Corpuscular Hemoglobin 30 25-34 PG Mean Corpuscular Hemoglobin Concent 34 32-36 G/DL Mean Corpuscular Volume 89 80-99 FL Mean Platelet Volume 11.2 H 7.4-10.4 FL Monocytes # (Auto) 1.7 H 0.0-1.0 X 10^3 Monocytes (%) (Auto) 8 0-12 % Neutrophils # (Auto) 18.7 H 1.8-7.8 X 10^3 Neutrophils (%) (Auto) 84 H 42-75 % Platelet Count 216 130-400 10^3/uL Red Blood Count 3.68 L 4.35-5.85 10^6/uL Red Cell Distribution Width 14.0 10.0-14.5 % White Blood Count 22.3 H 4.3-11.0 10^3/uL Physical Exam: General - Alert and oriented, no apparent distress Abdomen - Soft, appropriately tender to palpation, non-distended, fundus firm at umbilicus Incision - clean, dry and intact; no erythema or induration, no drainage Extremities - 1-2+ edema, negative Mario Alberto's bilaterally Assessment: 1. post-operative day # 2 , status post PLTCS. Recovering well, hemodynamically stable Plan: Routine post-operative care. Encourage breast feeding. Encourage ambulation. VTE prophylaxis: SCDs. Ferrous sulfate supplementation. Plan for discharge today. Vitals - Labs Vital Signs - I&O Vital Signs Date Time Temp Pulse Resp B/P Pulse Ox O2 Delivery O2 Flow Rate FiO2 11/10/16 04:18 97.8 69 18 144/84 99 Room Air 11/10/16 00:25 98.8 74 18 150/87 100 Room Air 11/09/16 20:00 99.3 76 18 139/61 99 Room Air 11/09/16 15:28 157/89 11/09/16 12:11 98.2 66 18 135/74 97 I & O 11/10/16 07:00 Intake Total 1000 ml Balance 1000 ml Labs Microbiology 11/06/16 Urine Culture - Final, Complete Enterococcus Faecalis MARY MORRELL DO Nov 10, 2016 09:11
[2016-11-10] MEDS: NITROFURANTOIN 100 MG (MACROBID) CAPSULE PO SCH (09:25)
[2016-11-10] MEDS: DOCUSATE SODIUM 100 MG (COLACE) CAP PO SCH (09:25)
[2016-11-10] MEDS: oxyCODONE/APAP 5/325MG (PERCOCET 5) TABLET PO SCH (09:26)
[2016-11-10] MEDS: PANTOPRAZOLE 40 MG (PROTONIX) TAB PO SCH (09:26)
[2016-11-10 11:50] VITALS: BP 144/87
--- NOTE | 2016-11-14 19:45 | Discharge Summary ---
Diagnosis/Chief Complaint Date of Admission Nov 06, 2016 at 10:07 Date of Discharge Nov 10, 2016 at 11:50 Discharge Date: Nov 10, 2016 Admission Diagnosis Admission Diagnosis Chronic hypertension, term intrauterine Discharge Diagnosis Same plus arrest of active phase of labor, delivery Reason Hospital Visit 26 y/o G1 @ 39w3d who presented today in clinic for JAGUAR (patient of Dr. Vo, seeing me today). Denies complaints other than large increase in facial and hand swelling. Reports pedal edema is somewhat better. Fetus is active, no LOF VB. Occ CTX. complications include class III obesity, likely cHTN (BP 140/80 at 17 wga, intermittently elevated since). 150/97 today in clinic. Denies h/a, vision changes, RUQ pain. Discharge Summary Procedures: Primary low transverse section Consultations Anesthesia Discharge Physical Examination Allergies: Coded Allergies: Sulfa (Sulfonamide Antibiotics) (Unverified Adverse Reaction, Intermediate , 01/28/14) Vitals & I&Os Vital Signs Date Time Temp Pulse Resp B/P Pulse Ox O2 Delivery O2 Flow Rate FiO2 11/10/16 11:50 77 18 144/87 99 Room Air 11/10/16 09:00 99.1 General Appearance: Alert, Oriented X3 Abdominal: Soft, No Tenderness, Other (firm fundus, incision c/d/i) Hospital Course 26 y/o G1 admitted at term for IOL, multi-day induction undertaken which culminated in primary CD for arrest of active phase of labor - see op note for details BPs monitored closely throughout hospital stay, had known chronic HTN Discharged in stable condition by Dr. Walters Labs see labs Discharge Condition at discharge Stable F/u in one week with Dr. Vo Instructions to patient/family Please see electonic discharge instructions given to patient. Discharge Medications Reviewed and agree with Discharge Medication list on patient's Discharge Instruction sheet Clinical Quality Measures DVT/VTE Risk/Contraindication: Risk Factor Score Per Nursin RFS Level Per Nursing on Admit: 2=Moderate RADHA QUINTANA MD Nov 14, 2016 19:45
== END 2016-11-10 11:50 | disposition home or self-care (01) | DRG 765 ==
LOC: LDRP 10:07
PROVIDERS: ADMIT Obstetrics & Gynecology; ATTEND Obstetrics & Gynecology
PROC: 3E0DXGC Introduction of Other Therapeutic Substance into Mouth and Pharynx, External Approach (ICD-10-PCS; 2016-11-07)
PROC: 10D00Z1 Extraction of Products of Conception, Low, Open Approach (ICD-10-PCS; principal; 2016-11-08 00:24)
DX: O62.1 Secondary uterine inertia (principal); O10.92 Unspecified pre-existing hypertension complicating childbirth; O23.43 Unspecified infection of urinary tract in pregnancy, third trimester; O61.0 Failed medical induction of labor; O99.214 Obesity complicating childbirth; E66.9 Obesity, unspecified; Z68.41 Body mass index [BMI] 40.0-44.9, adult; Z37.0 Single live birth; Z3A.39 39 weeks gestation of pregnancy
CPT/HCPCS: 36415; 80053; 81000; 83615; 84550; 85007; 85025; 85027; 86850; 86900; 86901; 87077; 87088; 87186; 94664

== ENCOUNTER → 2018-09-10 | Outpatient (CLI) | payer OTHER ==
[~2018-09-10] MED LIST changes: +DOCU-143 PO; +IBUP-1773 PO; +NITR100C10 PO; +OXYC1TAB87 PO
--- NOTE | 2018-09-10 12:56 | Diagnostic Imaging Report ---
INDICATION: Anatomy survey. TECHNIQUE: Multiple real-time grayscale images were obtained over the gravid uterus. COMPARISON: None. FINDINGS: There is a single live fetus in breech presentation. heart rate was recorded at 153 beats per minute. The placenta is anterior. Amniotic fluid volume is normal. survey demonstrates kidneys, bladder, and stomach to be unremarkable. Posterior fossa of the brain including the cerebellum and cisterna magna were not well visualized due to position. There is a four-chamber heart. There is an echogenic focus identified in the left ventricle. There is a three-vessel cord with normal insertion. The spine is unremarkable. Biometrical measurements are as follows: Biparietal 4.44 cm, age 19 weeks 3 days. Head circumference 17.58 cm, age 20 weeks 1 days. Abdominal circumference 15.72 cm, age 21 weeks 0 days. Femur length 3.29 cm, age 20 weeks 2 days. Sonographic estimate age: 20 weeks 2 days. Sonographic estimated date of delivery: 01/26/2019. Estimated Weight: 358 gm (+/- 52 gm). LMP percentile: 81%. heart rate: 153 beats per minute. number: 1 of 1. IMPRESSION: 1. Single live IUP at approximately 20 weeks 2 days gestational age. Estimated date of confinement sonographically is 01/26/2019. 2. Poorly visualized posterior fossa of the brain. In addition, there is an echogenic focus in the left ventricle. Followup ultrasound could be performed. Dictated by: Dictated on workstation # [id number]
== END ==
LOC: RAD 09:53
PROVIDERS: ATTEND Obstetrics & Gynecology
DX: Z36.89 Encounter for other specified antenatal screening (principal); Z3A.20 20 weeks gestation of pregnancy
CPT/HCPCS: 76805

== ENCOUNTER 2018-12-05 16:33 | Outpatient (CLI) | payer OTHER ==
[~2018-12-05] VITALS: Ht 152.4 cm; Wt 97.1 kg
--- NOTE | 2018-12-05 16:30 | NUR ---
MCKAYLA CHERRY presented to unit via from ED, accompanied by self, with c/o ABD PAIN. MCKAYLA CHERRY weighed, gowned, voided, and to bed. EFHM and TOCO applied, VS taken. MCKAYLA CHERRY oriented to bed controls, call light, TV, heat, and A/C controls.
[2018-12-05 17:51] LABS: BILIRUBIN,URINE NEGATIVE (NEGATIVE); CLARITY,URINE CLEAR; COLOR,URINE YELLOW; GLUCOSE, URINE (UA) NEGATIVE (NEGATIVE); KETONES,URINE NEGATIVE (NEGATIVE); LEUKOCYTE ESTERASE ,URINE 1+ (NEGATIVE); NITRITE,URINE NEGATIVE (NEGATIVE); PH,URINE 7 (5-9); PROTEIN,URINE NEGATIVE (NEGATIVE); UROBILINOGEN,URINE NORMAL (NORMAL)
[2018-12-05 18:16] LABS: BACTERIA,URINE MODERATE /HPF; WBC,URINE RARE /HPF
[2018-12-05] MEDS ORDERED: ANTACID SUSP 30 ML UDC (MYLANTA) PO ONE (18:30)
[2018-12-05] MEDS ORDERED: LIDOCAINE 2% VISCOUS 15 ML UDC PO ONE (18:30)
--- NOTE | 2018-12-05 18:42 | NUR ---
lab at bedside drawing blood for ordered blood tests.
[2018-12-05 18:53] LABS: BASOPHILS % (AUTO) 0 % (0-10); EOSINOPHILS # (AUTO) 0.1 10^3/uL (0.0-0.3); EOSINOPHILS % (AUTO) 1 % (0-10); HEMATOCRIT 36 % (35-52); HEMOGLOBIN 12.1 G/DL (11.5-16.0); LYMPHOCYTES # (AUTO) 2.3 X 10^3 (1.0-4.0); LYMPHOCYTES % (AUTO) 21 % (12-44); MEAN CORPUSCULAR HEMOGLOBIN 30 PG (25-34); MEAN CORPUSCULAR HGB CONC 34 G/DL (32-36); MEAN CORPUSCULAR VOLUME 88 FL (80-99); MEAN PLATELET VOLUME 10.2 FL (7.4-10.4); MONOCYTES # (AUTO) 0.7 X 10^3 (0.0-1.0); MONOCYTES % (AUTO) 7 % (0-12); NEUTROPHILS # (AUTO) 8.1 X 10^3 (1.8-7.8); NEUTROPHILS % (AUTO) 72 % (42-75); PLATELET COUNT 221 10^3/uL (130-400); RED CELL DISTRIBUTION WIDTH 13.5 % (10.0-14.5); WHITE BLOOD COUNT 11.3 10^3/uL (4.3-11.0)
[2018-12-05 19:13] LABS: ALANINE AMINOTRANSFERASE 27 U/L (0-55); ALBUMIN 3.4 GM/DL (3.2-4.5); ALKALINE PHOSPHATASE 112 U/L (40-136); BILIRUBIN,TOTAL 0.3 MG/DL (0.1-1.0); BUN/CREATININE RATIO 12; CARBON DIOXIDE 23 MMOL/L (21-32); CHLORIDE 106 MMOL/L (98-107); GFR ESTIMATED > 60; GLUCOSE 96 MG/DL (70-105); POTASSIUM 3.7 MMOL/L (3.6-5.0); SODIUM 139 MMOL/L (135-145); TOTAL PROTEIN 6.4 GM/DL (6.4-8.2)
[2018-12-05 19:30] VITALS: BP 134/76
--- NOTE | 2018-12-05 19:34 | NUR ---
called with labs. order to discharge home received.
[2018-12-05] MEDS ORDERED: DOCO200C4 PO (19:46)
[2018-12-05] MEDS ORDERED: FAMO-119 PO (19:47)
--- NOTE | 2018-12-05 20:00 | NUR ---
Discharge instructions verbalized with pt. pt verbalized understanding. pt dc'd home with s/o at side. Pepcid 20mg qd #30 called into [facility] for [facility].
--- NOTE | 2018-12-08 17:06 | Physician Query-Final Dx ---
DONNA SINGH 12/08/18 1706: Clinic Account Progress/Dx Physician Query: Please give diagnosis Date of Service Dec 05, 2018 at 16:33 MARY MORRELL DO 12/26/18 1251: Clinic Account Progress/Dx DIAGNOSIS: Diagnosis 32 weeks round ligament pain DONNA SINGH Dec 08, 2018 17:06 MARY MORRELL DO Dec 26, 2018 12:51
== END 2018-12-05 20:00 | disposition home or self-care (01) ==
LOC: WSo 16:33 → LDRP 16:34 → WSo 20:00
PROVIDERS: ATTEND Obstetrics & Gynecology
DX: O99.89 Other specified diseases and conditions complicating pregnancy, childbirth and the puerperium (principal); R10.32 Left lower quadrant pain; Z3A.32 32 weeks gestation of pregnancy
CPT/HCPCS: 36415; 80053; 81000; 85025; 99213

== ENCOUNTER 2019-01-12 09:05 | Outpatient (CLI) | payer OTHER ==
[~2019-01-12] VITALS: Ht 152.4 cm; Wt 98.4 kg
[~2019-01-12 09:05] MED LIST changes: +DOCO200C4 PO; +FAMO-119 PO
[2019-01-12 09:16] VITALS: BP 139/88
[2019-01-13] MEDS ORDERED: DOCU100C37 PO (21:19)
[2019-01-13] MEDS ORDERED: ACHD5005 PO (21:19)
[2019-01-13] MEDS ORDERED: IBUP-844 PO (21:19)
== END 2019-01-12 09:27 | disposition home or self-care (01) ==
LOC: PREOP 09:05
PROVIDERS: ATTEND Obstetrics & Gynecology
DX: Z01.818 Encounter for other preprocedural examination (principal)
CPT/HCPCS: 87081

== ENCOUNTER 2019-01-13 16:36 | Inpatient (IN) | payer OTHER ==
[~2019-01-13] VITALS: Ht 152.4 cm; Wt 99.8 kg
[2019-01-13] VITALS (11 sets, daily range): BP systolic 133–175; BP diastolic 68–91
--- NOTE | 2019-01-13 16:20 | NUR ---
MCKAYLA CHERRY presented to unit via AMBULATORY from OFFICE, accompanied by DR TURNER, with c/o GESTATIONAL HTN. MCKAYLA CHERRY weighed, gowned, voided, and to bed. EFHM and TOCO applied, VS taken. MCKAYLA CHERRY oriented to bed controls, call light, TV, heat, and A/C controls.
[2019-01-13 16:31] LABS: ALANINE AMINOTRANSFERASE 26 U/L (0-55); ALBUMIN 3.5 GM/DL (3.2-4.5); ALKALINE PHOSPHATASE 148 U/L (40-136); BILIRUBIN,TOTAL 0.5 MG/DL (0.1-1.0); BUN/CREATININE RATIO 8; CALCIUM 8.7 MG/DL (8.5-10.1); CARBON DIOXIDE 20 MMOL/L (21-32); CHLORIDE 108 MMOL/L (98-107); CREATININE SERUM 0.65 MG/DL (0.60-1.30); GFR ESTIMATED > 60; GLUCOSE 91 MG/DL (70-105); POTASSIUM 3.5 MMOL/L (3.6-5.0); SODIUM 137 MMOL/L (135-145); TOTAL PROTEIN 6.3 GM/DL (6.4-8.2); URIC ACID 4.8 MG/DL (2.6-7.2)
[2019-01-13] MEDS ORDERED: LACTATED RINGERS 1,000 ML IV PRN ×2 (16:42)
[2019-01-13] MEDS ORDERED: FAMOTIDINE 20MG/2ML IV (PEPCID) IV ONE (16:45)
[2019-01-13] MEDS ORDERED: CATHETER FLUSH 10 ML SYR IV PRN (16:45)
[2019-01-13] MEDS ORDERED: ceFAZolin 2 GM IV Premixed 50 ML IV ONE (16:45)
[2019-01-13] MEDS ORDERED: CITRIC ACID/SOB CIT (BICITRA) 30 ML UDC PO ONE (16:45)
[2019-01-13] MEDS ORDERED: METOCLOPRAMIDE INJ 10 MG/2 ML (REGLAN) IV ONE (16:45)
[2019-01-13] MEDS ORDERED: LACTATED RINGERS 1,000 ML IV ONE (16:47)
[2019-01-13 16:59] LABS: HEMATOCRIT 34 % (35-52); HEMOGLOBIN 12.2 G/DL (11.5-16.0); MEAN CORPUSCULAR HEMOGLOBIN 31 PG (25-34); MEAN CORPUSCULAR VOLUME 86 FL (80-99); WHITE BLOOD COUNT 11.5 10^3/uL (4.3-11.0)
[2019-01-13 17:00] LABS: BASOPHILS % (AUTO) 0 % (0-10); EOSINOPHILS # (AUTO) 0.1 10^3/uL (0.0-0.3); EOSINOPHILS % (AUTO) 1 % (0-10); LYMPHOCYTES # (AUTO) 1.9 X 10^3 (1.0-4.0); LYMPHOCYTES % (AUTO) 17 % (12-44); MEAN CORPUSCULAR HGB CONC 36 G/DL (32-36); MEAN PLATELET VOLUME 10.7 FL (7.4-10.4); MONOCYTES # (AUTO) 0.8 X 10^3 (0.0-1.0); MONOCYTES % (AUTO) 7 % (0-12); NEUTROPHILS # (AUTO) 8.8 X 10^3 (1.8-7.8); NEUTROPHILS % (AUTO) 9 % (42-75); PLATELET COUNT 210 10^3/uL (130-400); RED CELL DISTRIBUTION WIDTH 13.6 % (10.0-14.5)
--- NOTE | 2019-01-13 17:25 | NUR ---
Dr Vo called to check on pt and time for . updated on time and notified of fhr pattern reactive, baseline 155 accels and mod variability, contractions noted (pt denies feeling contractions), bp's obtained.
[2019-01-13] MEDS ORDERED: ceFAZolin 2 GM IV Premixed 50 ML ONE (17:51)
--- NOTE | 2019-01-13 18:19 | History & Physical-OB ---
OB - Chief Complaint & HPI Date/Time Date of Admission: Date of Admission: Jan 13, 2019 at 16:36 Date seen by a Provider: Jan 13, 2019 Time Seen by a Provider: 15:00 Chief Complaint/History OB-Reason for Admission/Chief: Section Hx : 2 Hx Para: 1 Expected Date of Delivery: Jan 25, 2019 Gestational Age in Weeks: 38 Gestational Age in Days: 2 Indication for : desires repeat Other reason for admission: This patient came into the office earlier for not feeling well after getting off of work, and feeling lightheaded and dizzy. Reports BP at home 180s/100s, in office was 158/100, also FHR ausculated in the the 200s, she was sent up for delivery due to sudden onset GHTN, and visual disturbance consistent with PreE, at 38 weeks. Labs are pending at admission. Admission Nurse Assessment Rev: Yes History of Labs A pos Antibody neg RI RPR NR HBsAg NR HIV NR GC neg GBS neg Allergies and Home Medications Allergies Coded Allergies: Sulfa (Sulfonamide Antibiotics) (Unverified Adverse Reaction, Intermediate , 01/28/14) Home Medications Docosahexanoic Acid 200 Mg Capsule, 200 MG PO DAILY, (Reported) Patient Home Medication List Home Medication List Reviewed: Yes OB - History Hx of Present Care: Yes Ultrasounds: Normal mid trimester US Obstetrical Complications: Gestational Hypertension Medical Complications: None Delivery History Hx Blood Disorders: No Adverse Rxn to Tranfusion: No Patient Past Medical History see above Social History/Family History HIV/AIDS: No Sexually Transmitted Disease: No Alcohol Use: Denies Use Recreational Drug Use: No Immunizations Hepatitis A: No Hepatitis B: No Tetanus Booster (TDap): Less than 5yrs Date of Influenza Vaccine: Sep 06, 2018 OB - Admission Exam Physical Exam Vitals: Vital Signs 01/13/19 01/13/19 16:30 17:31 Temp 99.6 Pulse 82 Resp 18 B/P (MAP) 146/83 (104) Pulse Ox 99 O2 Delivery Room Air HEENT: NCAT Heart: Rhythm Normal Lungs: Clear Abdomen: Gravid Extremities: Normal Reflexes: Normal Heart Rate: 150's Accelerations: Accelerations Present Decelerations: No Decelerations Short Term Variability: Present Pulp Drier Firer Variability: Average (6-25) Contractions on Admission: 6-10 Minutes Apart Intensity: Mild Labs Laboratory Tests Test 01/13/19 15:30 Range/Units White Blood Count 11.5 H 4.3-11.0 10^3/uL Red Blood Count 3.99 L 4.35-5.85 10^6/uL Hemoglobin 12.2 11.5-16.0 G/DL Hematocrit 34 L 35-52 % Mean Corpuscular Volume 86 80-99 FL Mean Corpuscular Hemoglobin 31 25-34 PG Mean Corpuscular Hemoglobin Concent 36 32-36 G/DL Red Cell Distribution Width 13.6 10.0-14.5 % Platelet Count 210 130-400 10^3/uL Mean Platelet Volume 10.7 H 7.4-10.4 FL Neutrophils (%) (Auto) 9 L 42-75 % Lymphocytes (%) (Auto) 17 12-44 % Monocytes (%) (Auto) 7 0-12 % Eosinophils (%) (Auto) 1 0-10 % Basophils (%) (Auto) 0 0-10 % Neutrophils # (Auto) 8.8 H 1.8-7.8 X 10^3 Lymphocytes # (Auto) 1.9 1.0-4.0 X 10^3 Monocytes # (Auto) 0.8 0.0-1.0 X 10^3 Eosinophils # (Auto) 0.1 0.0-0.3 10^3/uL Basophils # (Auto) 0.0 0.0-0.1 10^3/uL OB - Assessment/Plan/Diagnosis Assessment Assessment: section Admission Dx 28 yo @ 38.2 GHTN- PreE labs pending Visual disturbance Previous Admission Status: Inpatient Order (span 2 midnights) Reason for Inpatient Admission: Repeat Plan Plan: Section MALCOLM TURNER DO Jan 13, 2019 18:19
[2019-01-13] MEDS ORDERED: OXYTOCIN/NORMAL SALINE 500 ML IV SCH (21:11)
[2019-01-13] MEDS ORDERED: OXYTOCIN/NORMAL SALINE 1,000 ML IV ONE (21:12)
[2019-01-13] MEDS ORDERED: fentaNYL INJECTION 100 MCG/2 ML AMP ONE (21:13)
[2019-01-13] MEDS ORDERED: MEASLES,MUMPS,RUBELLA 1 EA INJ SC SCH (21:15)
[2019-01-13] MEDS ORDERED: HYDROmorphone 2 MG/ML VIAL (DILAUDID) IV PRN (21:15)
[2019-01-13] MEDS ORDERED: TETANUS,DIPTH,PERTUSS P/F (BOOSTRIX) 0.5 ML VIAL IM SCH (21:15)
--- NOTE | 2019-01-13 21:16 | Discharge Inst-Women's Service ---
Discharge Inst-Women's Serv Depart Medication/Instructions New, Converted or Re-Newed RX: RX on Chart Final Diagnosis POD 2 RLTCS Consults/Follow Up Additional Follow Up: Yes Orders/Referrals Dr. Vo in 7-10 days and in 6 weeks Activity Activity: Activity as Tolerated Driving Instructions: No Driving for 1 Week NO SMOKING: NO SMOKING Nothing Inside Vagina: No Douching, No [place], No Tampons Diet Discharge Diet: No Restrictions Symptoms to Report to : Bleeding Excessive, Pain Increased, Fever Over 101 Degrees F, Vaginal Bleeding Increase, Questions/Concerns For Any Problems or Questions: Contact Your Physician Skin/Wound Care Infection Signs and Symptoms: Increased Redness, Foul Odor of Wound, Increased Drainage, Skin Itchy or Has a Rash, Increased Swelling, Temperature Above 101 F Operative Area Clean and Dry: Keep Incision Clean/Dry Stitches/[place]/Dermabond: Dermabond, Care of Stitches Bathing Instructions: MALCOLM Solis DO Jan 13, 2019 21:16
[2019-01-13] MEDS ORDERED: ACHD5005 PO (21:19)
[2019-01-13] MEDS ORDERED: IBUP-844 PO (21:19)
[2019-01-13] MEDS ORDERED: DOCU100C37 PO (21:19)
--- NOTE | 2019-01-13 21:20 | NUR ---
Pt walked back to OR by OR crew. Dad is shown where to sit until called back. Ancef 2 grams hung.
[2019-01-13] MEDS ORDERED: ONDANSETRON 4 MG/2 ML (SDV) Z0FRAN ONE (21:52)
[2019-01-13] MEDS ORDERED: KETOROLAC 30 MG/ML VIAL ONE (21:57)
[2019-01-13] MEDS ORDERED: CATHETER FLUSH 10 ML SYR IV SCH (22:00)
[2019-01-13] MEDS: KETOROLAC 30 MG/ML VIAL IVP SCH (22:53)
[2019-01-14] MEDS: HYDROcodone/APAP 5 MG/325 MG (LORTAB) TAB PO PRN ×4 (01:11→19:56)
--- NOTE | 2019-01-14 02:00 | NUR ---
Pt. stands at side of bed at this time.
--- NOTE | 2019-01-14 04:00 | NUR ---
Pt requests to get up and walk. Pt. stands at side of bed, but get light headed and is afraid she is going to pass out. Pt. laid back down at this time. Feet elevated. Vitals taken. Pt. denies needing to void at this time. Baby is taken to nursery for bath, and nurses tell mom that she needs to try and sleep some while we have baby. Mom agrees.
[2019-01-14 04:11] VITALS: BP 104/46
[2019-01-14] MEDS: ONDANSETRON 4 MG/2 ML (SDV) Z0FRAN IVP PRN ×2 (05:10→08:03)
[2019-01-14] MEDS: KETOROLAC 30 MG/ML VIAL IVP SCH ×3 (05:10→11:54)
--- NOTE | 2019-01-14 06:10 | NUR ---
Nurse at bedside after previous nurse attempted to get pt up to bathroom again and pt became lightheaded and nauseous. Fundus massaged at this time. Pad removed. Minimal bleeding noted with one dime size clot. Fundus firm and one under umbilicus. Pt. experiencing moderate to severe tenderness when massaged. Lab called at this time to expedite 0600 labs being drawn. The state that they will send their skip load driver up as soon as he gets done in the room that he is in.
[2019-01-14 06:20] VITALS: BP 103/54
--- NOTE | 2019-01-14 06:25 | NUR ---
Pt. up nursing . No longer dizzy or nauseas. Dressing removed at this time. Tolerated well. Incision is dry and intact. No problems noted.
--- NOTE | 2019-01-14 06:35 | Anesthesia-Regional Post-Op ---
Regional Patient Condition Mental Status: Alert, Oriented x3 Circulation: Same as Pre-Op Headache: Absent Sensation: Full Recovery Motor Block: Absent Post Op Complications Complications None Follow Up Care/Instructions Patient Instructions None needed. Anesthesia/Patient Condition Patient is doing well, no complaints, stable vital signs, no apparent adverse anesthesia problems. No complications reported per nursing. LISA PRESTON CRNA Jan 14, 2019 06:35
[2019-01-14 06:50] LABS: BASOPHILS % (AUTO) 0 % (0-10); EOSINOPHILS % (AUTO) 0 % (0-10); HEMATOCRIT 27 % (35-52); HEMOGLOBIN 9.3 G/DL (11.5-16.0); LYMPHOCYTES # (AUTO) 1.3 X 10^3 (1.0-4.0); LYMPHOCYTES % (AUTO) 9 % (12-44); MEAN CORPUSCULAR HEMOGLOBIN 30 PG (25-34); MEAN CORPUSCULAR HGB CONC 34 G/DL (32-36); MEAN CORPUSCULAR VOLUME 88 FL (80-99); MEAN PLATELET VOLUME 10.8 FL (7.4-10.4); MONOCYTES # (AUTO) 0.9 X 10^3 (0.0-1.0); MONOCYTES % (AUTO) 6 % (0-12); NEUTROPHILS # (AUTO) 13.1 X 10^3 (1.8-7.8); NEUTROPHILS % (AUTO) 86 % (42-75); PLATELET COUNT 213 10^3/uL (130-400); RED CELL DISTRIBUTION WIDTH 13.6 % (10.0-14.5); WHITE BLOOD COUNT 15.3 10^3/uL (4.3-11.0)
--- NOTE | 2019-01-14 06:59 | NUR ---
Dr. Vo called with report on pt. Informed that pt has been unable to get up without passing out. Vital signs, bleeding, urine output, and labs read to Medications reviewed with at this time. states that he will be up within the hour to see her.
--- NOTE | 2019-01-14 07:21 | OPERATIVE REPORT ---
DATE OF SERVICE: PREOPERATIVE DIAGNOSES: 1. A 28-year-old G2, P1 at 38 weeks and 2 days gestation. 2. Gestational hypertension. 3. Early onset labor. 4. Previous section. POSTOPERATIVE DIAGNOSES: 1. A 28-year-old G2, P1 at 38 weeks and 2 days gestation. 2. Gestational hypertension. 3. Early onset labor. 4. Previous section. PROCEDURE: Repeat low transverse section. SURGEON: Lisandro Turner DO. ANESTHESIA: Spinal. ESTIMATED BLOOD LOSS: 600 mL. URINE OUTPUT: 30 mL clear at the end of the procedure. FLUIDS: 1500 mL of lactated Ringer solution. FINDINGS: A live female infant weighing 7 pounds even with Apgars of 8 and 8. Grossly normal appearing uterus, bilateral fallopian tubes and ovaries. INDICATIONS FOR PROCEDURE: A 28-year-old female patient came to my office this afternoon with a feeling of grogginess, dizziness and vision changes of acute onset of blood pressure check at home and revealed a blood pressure as high as 160s/100s. Once in the office, it was in the high 150s to 100s she said the patient upstairs for admission. Stat labs were sent; however, I have still not seen them resulted back from the laboratory at this point. The patient's preoperative labs were performed yesterday, thought her hemoglobin preoperatively was noted. Once admitted, the patient was noted to be having regular contractions every two to three minutes. She was feeling some of them; however, due to the patient's acute elevation of blood pressure and suspicion for underlying preeclampsia, especially with constitutional changes to her vision a decision was made to proceed with a repeat . Risks of procedure have already been reviewed with the patient in detail and all of her questions were answered in the preoperative area with her present. Consent was obtained in the preoperative area and the patient was taken to the operating room. OPERATIVE REPORT: Once in the operating room, spinal anesthesia was found to be adequate, placed in supine position with a leftward tilt, prepped and draped in normal sterile fashion. A Pfannenstiel skin incision was made through the previous existing scar using knife and carried down to the underlying fascia using Bovie cautery. Fascial incision extended laterally using Bovie cautery. The superior aspect of the fascial incision was then grasped with Janell clamps, tented up and dissected off the underlying rectus muscles. The inferior aspect of the fascial incision was then grasped with Janell clamps, tented up and dissected off the underlying rectus muscles. The rectus muscles were dissected down the midline using Meyer scissors, which was exposed. Peritoneum entered bluntly and extended using blunt traction. An Osman ring retractor was placed in the peritoneal incision, which offered excellent lateral sidewall retraction. I then identified the lower uterine segment, which was found to be thinned out and made a low transverse incision to the vesicouterine peritoneum and bluntly dissected the bladder flap off of the lower uterine segment. I then proceeded with myotomy until membranes were visualized, at which point I extended the uterine incision laterally and superiorly using bandage scissors. Amniotomy was performed in this process. Copious amount of clear fluid was noted. The was found in the vertex presentation. With gentle fundal pressure, the infant's head is elevated to the incision and delivered through the incision where the nares and oropharynx were bulb suctioned. Anterior and posterior shoulders were delivered and the was then brought to the operative field. The cord was doubly clamped and cut and infant was handed off to awaiting nurses in attendance. Cord blood was collected. Three-vessel cord was intact. Placenta was delivered spontaneously thereafter. IV Pitocin was initiated to facilitate uterine contraction. Fundus became firmer with bimanual massage. The uterus was exteriorized and cleared of all endometrial clots and debris. I then proceeded with closing the uterine incision using 0 Vicryl suture in running locked fashion. A second layer of imbricating 0 Monocryl was placed. Excellent hemostasis was noted after doing this. I then placed the uterus back in the pelvis and copiously irrigated the pelvis with normal saline. There was no active bleeding noted from any of my dissection planes. I placed Interceed antiadhesive over my transverse incision and proceeded with closing the peritoneum using 3-0 Vicryl suture in running fashion. The rectus muscle reapproximated using 3-0 Vicryl suture in interrupted fashion. The fascia reapproximated using 0 Vicryl stitch in a running fashion. Subcutaneous tissue was reapproximated using 3-0 plain in an interrupted subcutaneous stitch and the skin was reapproximated using 4-0 Monocryl running subcuticular. Dermabond was applied to incision and a sterile dressing with adhesive white tape. The patient tolerated the procedure well and was taken to recovery area in stable condition. Lap and sponge count as correct at the end of the procedure. Instrument count was correct as well. Two grams of Ancef were given preoperatively for infection prophylaxis. Job ID: [id number] DocumentID: [id number] Dictated Date: 01/13/2019 22:13:04 Roller Shop Supervisor Date: 01/14/2019 07:20:51 Dictated By: LISANDRO TURNER DO
--- NOTE | 2019-01-14 07:50 | NUR ---
UP TO THE BATHROOM. VOIDED 300CC URINE. NO C/O DIZZINESS OR LIGHTHEADEDNESS. AMBULATED WELL WITH ASSIST. BACK TO BED WITHOUT PROBLEMS.
--- NOTE | 2019-01-14 07:55 | NUR ---
FF U/1. VAG FLOW LT/MOD RUBRA.
[2019-01-14 08:00] VITALS: BP 131/81
--- NOTE | 2019-01-14 08:00 | NUR ---
A.M. ASSESSMENT COMPLETED. DOING BETTER. VSS.
--- NOTE | 2019-01-14 08:10 | NUR ---
DR. TURNER IN TO SEE PT. UPDATE GIVEN.
--- NOTE | 2019-01-14 08:24 | Postpartum Progress Note ---
Note Note Day # 1 Subjective: Patient is without complaints. Ambulating, voiding. Tolerating a regular diet without nausea or vomiting. Normal lochia. Pain is well controlled with oral pain medications. Objective: Physical Exam: General - Alert and oriented, no apparent distress Abdomen - Soft, appropriately tender to palpation, non-distended, fundus firm at umbilicus Extremities - no edema, negative Mario Alberto's bilaterally Incision- c/d/i Assessment: POD 1 RLTCS Acute blood loss anemia Plan: Routine care. Encourage breast feeding. Encourage ambulation. Ferrous sulfate supplementation. Plan for discharge tomorrow is stable Vitals - Labs Vital Signs - I&O Vital Signs Date Time Temp Pulse Resp B/P (MAP) Pulse Ox O2 Delivery O2 Flow Rate FiO2 01/14/19 06:20 98.2 69 20 103/54 (70) 98 Room Air 01/14/19 04:11 97.8 66 22 104/46 (65) 100 Room Air 01/14/19 01:16 Room Air 01/13/19 23:50 97.8 72 18 139/76 (97) 100 Room Air 01/13/19 21:02 98.0 87 18 139/91 (107) 100 Room Air 01/13/19 20:32 78 18 135/68 (90) Room Air 01/13/19 20:01 75 18 140/80 (100) Room Air 01/13/19 19:30 75 18 157/74 (101) Room Air 01/13/19 19:00 80 18 175/75 (108) Room Air 01/13/19 18:31 86 18 143/78 (99) Room Air 01/13/19 18:00 78 18 133/73 (93) Room Air 01/13/19 17:31 82 18 146/83 (104) Room Air 01/13/19 17:08 81 18 142/77 (98) Room Air 01/13/19 16:30 99.6 84 18 164/80 (108) 99 Room Air I & O 01/14/19 07:00 Intake Total 2650 ml Output Total 330 ml Balance 2320 ml Labs Laboratory Tests 01/13/19 15:30: White Blood Count 11.5H, Red Blood Count 3.99L, Hemoglobin 12.2, Hematocrit 34L , Mean Corpuscular Volume 86, Mean Corpuscular Hemoglobin 31, Mean Corpuscular Hemoglobin Concent 36, Red Cell Distribution Width 13.6, Platelet Count 210, Mean Platelet Volume 10.7H, Neutrophils (%) (Auto) 9L, Lymphocytes (%) (Auto) 17 , Monocytes (%) (Auto) 7, Eosinophils (%) (Auto) 1, Basophils (%) (Auto) 0, Neutrophils # (Auto) 8.8H, Lymphocytes # (Auto) 1.9, Monocytes # (Auto) 0.8, Eosinophils # (Auto) 0.1, Basophils # (Auto) 0.0 01/14/19 06:40: White Blood Count 15.3H, Red Blood Count 3.08L, Hemoglobin 9.3#L, Hematocrit 27L , Mean Corpuscular Volume 88, Mean Corpuscular Hemoglobin 30, Mean Corpuscular Hemoglobin Concent 34, Red Cell Distribution Width 13.6, Platelet Count 213, Mean Platelet Volume 10.8H, Neutrophils (%) (Auto) 86H, Lymphocytes (%) (Auto) 9L, Monocytes (%) (Auto) 6, Eosinophils (%) (Auto) 0, Basophils (%) (Auto) 0, Neutrophils # (Auto) 13.1H, Lymphocytes # (Auto) 1.3, Monocytes # (Auto) 0.9, Eosinophils # (Auto) 0.0, Basophils # (Auto) 0.0 MALCOLM TURNER DO Jan 14, 2019 08:24
--- NOTE | 2019-01-14 09:00 | NUR ---
FAMILY REMAINS AT BEDSIDE.
[2019-01-14] MEDS: IBUPROFEN 600 MG (MOTRIN) TAB PO SCH ×3 (09:15→23:58)
[2019-01-14] MEDS: DOCUSATE SODIUM 100 MG (COLACE) CAP PO SCH ×2 (09:25→19:56)
--- NOTE | 2019-01-14 10:00 | NUR ---
UP TO THE BATHROOM WITH MINIMAL ASSISTANCE. DOING MUCH BETTER. VOIDED 600 MLS. BACK TO BED AND ABLE TO GET INTO BED HERSELF. WHEN LEFT ROOM. GOOD INTERACTION NOTED. DOING I.S.
[2019-01-14 12:00] VITALS: BP 125/70
--- NOTE | 2019-01-14 12:00 | NUR ---
1154 TORADOL 30 MG IVP. PT REQUESTING SALINE LOCK OUT. WANTING TO GET IN THE SHOWER. 1159 LORTAB 2 TABS P.O. FOR C/O ABD PAIN. 1200 SALINE LOCK D/C'ED WITH TIP INTACT. SITE CLEAR.
--- NOTE | 2019-01-14 13:30 | NUR ---
EATING LUNCH. DOING WELL. SHOWERED WITHOUT PROBLEMS. FF U/1. VAG FLOW LT RUBRA. FAMILY AT BEDSIDE.
--- NOTE | 2019-01-14 14:30 | NUR ---
PT HAD SEVERAL VISITORS AND UPSET R/T GRANDFATHER FROM ASSISTED KISSING ON BABY. PT TEARFUL BEFORE THEY LEFT. WANTED TO TALK WITH THIS RN REGARDING RISKS. REASSURANCE GIVEN AND SUGGESTED TO HAVE ALL VISITORS WASH HANDS PRIOR TO HOLDING AND REQUEST NOT TO KISS ON INFANT.
--- NOTE | 2019-01-14 15:34 | NUR ---
AMBULATING IN THE HALLS WITH MOM. MOVING WELL.
[2019-01-14 16:00] VITALS: BP 131/77
--- NOTE | 2019-01-14 17:00 | NUR ---
RESTING IN BED HOLDING INFANT. OFFERS NO COMPLAINTS AT THIS TIME.
[2019-01-14] MEDS ORDERED: SIMETHICONE 80 MG (MYLICON) CHEW ONE (18:29)
--- NOTE | 2019-01-14 18:30 | NUR ---
EATING STORK MEAL. REQUESTED SOMETHING FOR GAS.FAMILY AT BEDSIDE.
[2019-01-14] MEDS: SIMETHICONE 80 MG (MYLICON) CHEW PO PRN (18:33)
[2019-01-14 19:50] VITALS: BP 141/69
[2019-01-15 02:00] VITALS: BP 127/77
[2019-01-15] MEDS: IBUPROFEN 600 MG (MOTRIN) TAB PO SCH (05:53)
[2019-01-15] MEDS: SIMETHICONE 80 MG (MYLICON) CHEW PO PRN (07:41)
[2019-01-15] MEDS: HYDROcodone/APAP 5 MG/325 MG (LORTAB) TAB PO PRN (07:42)
[2019-01-15] MEDS: DOCUSATE SODIUM 100 MG (COLACE) CAP PO SCH (07:42)
[2019-01-15 07:45] VITALS: BP 124/73
--- NOTE | 2019-01-15 12:27 | Postpartum Progress Note ---
Note Note Day # 2 Subjective: Patient is without complaints. Ambulating, voiding. Tolerating a regular diet without nausea or vomiting. Normal lochia. Pain is well controlled with oral pain medications. Objective: Physical Exam: General - Alert and oriented, no apparent distress Abdomen - Soft, appropriately tender to palpation, non-distended, fundus firm at umbilicus Extremities - no edema, negative Mario Alberto's bilaterally Incision- c/d/i Assessment: POD 2 RLTCS Acute blood loss anemia Plan: Routine care. Encourage breast feeding. Encourage ambulation. Ferrous sulfate supplementation. Plan for discharge today Vitals - Labs Vital Signs - I&O Vital Signs Date Time Temp Pulse Resp B/P (MAP) Pulse Ox O2 Delivery O2 Flow Rate FiO2 01/15/19 07:45 88 16 124/73 99 01/15/19 02:00 97.7 79 18 127/77 (94) 100 Room Air 01/14/19 19:50 98.5 96 18 141/69 (93) 99 Room Air 01/14/19 16:00 98.1 95 20 131/77 (95) 100 Room Air I & O 01/15/19 07:00 Intake Total 3040 ml Output Total 2250 ml Balance 790 ml MALCOLM TURNER DO Jan 15, 2019 12:27
--- NOTE | 2019-01-15 12:55 | NUR ---
Discharged to exit. Mom ambulatory. Dad carrying baby in car seat. Accompanied by this nurse.
== END 2019-01-15 12:55 | disposition home or self-care (01) | DRG 787 ==
LOC: LDRP 16:36
PROVIDERS: ADMIT Obstetrics & Gynecology; ATTEND Obstetrics & Gynecology
PROC: 10D00Z1 Extraction of Products of Conception, Low, Open Approach (ICD-10-PCS; principal; 2019-01-13 21:21)
DX: O13.3 Gestational [pregnancy-induced] hypertension without significant proteinuria, third trimester (principal); O90.81 Anemia of the puerperium; D62 Acute posthemorrhagic anemia; O34.211 Maternal care for low transverse scar from previous cesarean delivery; Z3A.38 38 weeks gestation of pregnancy; Z37.0 Single live birth
CPT/HCPCS: 36415; 80053; 82570; 84156; 84550; 85025; 86850; 86900; 86901; 94664

== ENCOUNTER → 2021-03-13 | Outpatient (CLI) | payer BC, OTHER ==
[~2021-03-13] MED LIST changes: +ACHD5005 PO; +DOCU100C37 PO; +IBUP-844 PO
--- NOTE | 2021-03-13 18:06 | Diagnostic Imaging Report ---
INDICATION: Normal first second trimester. TECHNIQUE: Multiple real-time grayscale images were obtained over the gravid uterus. COMPARISON: None. FINDINGS: anatomical survey showed normal-appearing bladder, stomach, ventricles, brain, four-chamber heart, three-vessel cord, and spine cord insertion. The kidneys were not well visualized. gender was not identified. Placenta was posterior without evidence of abruption or previa. Fetus was active, changing from vertex to breech during the exam. Maternal adnexa appears normal. Biometrical measurements are as follows: Biparietal 4.56 cm, age 19 weeks 6 days. Head circumference 17.19 cm, age 19 weeks 6 days. Abdominal circumference 14.90 cm, age 20 weeks 2 days. Femur length 3.23 cm, age 20 weeks 1 days. Sonographic estimate age: 20 weeks 1 days. Sonographic estimated date of delivery: 07/30/2021. Estimated Weight: 330 gm (+/- 48 gm). LMP percentile: 41%. heart rate: 150 beats per minute. number: 1 of 1. IMPRESSION: 1. The 20 weeks 1 day live intrauterine by current biometric measurements with sonographic EDC of 07/30/2021. 2. Limited survey with kidneys not well demonstrated and sex not identified. Dictated by: Dictated on workstation # [id number]
== END ==
LOC: RAD 09:34
PROVIDERS: ATTEND Nurse Practitioner Women's Health
DX: Z34.02 Encounter for supervision of normal first pregnancy, second trimester (principal); Z3A.20 20 weeks gestation of pregnancy
CPT/HCPCS: 76805

== ENCOUNTER 2021-06-25 20:40 | Outpatient (CLI) | payer BC ==
[2021-06-25] VITALS (8 sets, daily range): BP systolic 129–194; BP diastolic 61–88
[~2021-06-25] VITALS: Ht 152.4 cm; Wt 101.1 kg
[2021-06-25 20:58] LABS: BILIRUBIN,URINE NEGATIVE (NEGATIVE); CLARITY,URINE CLEAR; COLOR,URINE YELLOW; GLUCOSE, URINE (UA) NEGATIVE (NEGATIVE); KETONES,URINE NEGATIVE (NEGATIVE); LEUKOCYTE ESTERASE ,URINE 1+ (NEGATIVE); NITRITE,URINE NEGATIVE (NEGATIVE); PROTEIN,URINE NEGATIVE (NEGATIVE)
[2021-06-25 21:07] LABS: BACTERIA,URINE FEW /HPF; WBC,URINE 25-50 /HPF
[2021-06-25] MEDS ORDERED: LABETALOL 200 MG (NORMODYNE) TAB PO ONE (21:30)
[2021-06-25 21:55] LABS: BASOPHILS % (AUTO) 0 % (0-10); EOSINOPHILS # (AUTO) 0.1 10^3/uL (0.0-0.3); EOSINOPHILS % (AUTO) 1 % (0-10); HEMATOCRIT 33 % (35-52); HEMOGLOBIN 11.2 g/dL (11.5-16.0); LYMPHOCYTES # (AUTO) 2.3 10^3/uL (1.0-4.0); LYMPHOCYTES % (AUTO) 20 % (12-44); MEAN CORPUSCULAR HEMOGLOBIN 29 pg (25-34); MEAN CORPUSCULAR HGB CONC 34 g/dL (32-36); MEAN CORPUSCULAR VOLUME 86 fL (80-99); MEAN PLATELET VOLUME 10.8 fL (9.0-12.2); MONOCYTES # (AUTO) 0.8 10^3/uL (0.0-1.0); MONOCYTES % (AUTO) 7 % (0-12); NEUTROPHILS # (AUTO) 8.6 10^3/uL (1.8-7.8); NEUTROPHILS % (AUTO) 72 % (42-75); PLATELET COUNT 226 10^3/uL (130-400); WHITE BLOOD COUNT 11.9 10^3/uL (4.3-11.0)
[2021-06-25 22:10] LABS: ALBUMIN 3.2 GM/DL (3.2-4.5); POTASSIUM 3.4 MMOL/L (3.6-5.0)
[2021-06-25 22:11] LABS: CALCIUM 8.9 MG/DL (8.5-10.1)
[2021-06-25 22:12] LABS: TOTAL PROTEIN 6.3 GM/DL (6.4-8.2)
[2021-06-25 22:13] LABS: CLARITY,URINE CLEAR; COLOR,URINE YELLOW
[2021-06-25 22:14] LABS: BILIRUBIN,TOTAL 0.3 MG/DL (0.1-1.0)
[2021-06-25 22:14] LABS: BACTERIA,URINE FEW /HPF; BILIRUBIN,URINE NEGATIVE (NEGATIVE); GLUCOSE, URINE (UA) NEGATIVE (NEGATIVE); KETONES,URINE NEGATIVE (NEGATIVE); LEUKOCYTE ESTERASE ,URINE 1+ (NEGATIVE); NITRITE,URINE NEGATIVE (NEGATIVE); PROTEIN,URINE NEGATIVE (NEGATIVE); WBC,URINE 25-50 /HPF
[2021-06-25 22:16] LABS: CREATININE SERUM 0.54 MG/DL (0.60-1.30)
[2021-06-25 22:19] LABS: URIC ACID 3.9 MG/DL (2.6-7.2)
[2021-06-25 22:28] LABS: URINE CREATININE FOR RATIO 33 MG/DL (30-125)
[2021-06-25] MEDS ORDERED: LABE200T7 PO (22:28)
[2021-06-25 22:29] LABS: URINE PROTEIN FOR RATIO ONLY < 6 MG/DL (6-12)
--- NOTE | 2021-06-26 10:17 | Physician Query-Final Dx ---
OREN CORDOBA 06/26/21 1017: Clinic Account Progress/Dx Physician Query: Please give diagnosis Please include # weeks gestation Date of Service Jun 25, 2021 at 20:40 MALCOLM TURNER DO 06/27/21 1409: Clinic Account Progress/Dx DIAGNOSIS: Diagnosis 35 week headache GOLDTOREN CABEZAS Jun 26, 2021 10:17 MALCOLM TURNER DO Jun 27, 2021 14:09
== END 2021-06-25 23:02 | disposition home or self-care (01) ==
LOC: LDRP 20:40 → WSo 20:40
PROVIDERS: ATTEND Obstetrics & Gynecology
DX: O16.3 Unspecified maternal hypertension, third trimester (principal); Z3A.35 35 weeks gestation of pregnancy
CPT/HCPCS: 36415; 80053; 81000; 82570; 84156; 84550; 85025; 87088; 99214

== ENCOUNTER → 2021-07-05 | Outpatient (CLI) | payer BC ==
[~2021-07-05] MED LIST changes: +LABE200T7 PO
== END ==
LOC: LABNPT 11:43
PROVIDERS: ATTEND Obstetrics & Gynecology
DX: O13.9 Gestational [pregnancy-induced] hypertension without significant proteinuria, unspecified trimester (principal)
CPT/HCPCS: 82570; 84156

== ENCOUNTER 2021-07-06 05:46 | Outpatient (CLI) | payer BC ==
[~2021-07-06] VITALS: Ht 152.4 cm; Wt 99.1 kg
[2021-07-06] MEDS ORDERED: LABE200T7 PO (13:04)
[2021-07-10] MEDS ORDERED: ACHD5005 PO (07:22)
[2021-07-10] MEDS ORDERED: DCS100C PO (07:22)
[2021-07-10] MEDS ORDERED: IBUP-844 PO (07:22)
== END 2021-07-06 13:18 ==
LOC: PREOP 05:46
PROVIDERS: ATTEND Obstetrics & Gynecology
DX: Z01.818 Encounter for other preprocedural examination (principal)

== ENCOUNTER → 2021-07-06 | Outpatient (CLI) | payer BC ==
--- NOTE | 2021-07-06 15:32 | Diagnostic Imaging Report ---
INDICATION: Gestational hypertension. TECHNIQUE: Multiple real-time grayscale images were obtained over the gravid uterus. COMPARISON: None. FINDINGS: There is a single live fetus in a cephalic presentation. heart rate was recorded at 172 BPM. Amniotic fluid index is 9.7 cm. Biophysical profile score is normal at 8/8. Biometrical measurements are as follows: Biparietal 8.87 cm, age 36 weeks 0 days. Head circumference 32.25 cm, age 36 weeks 4 days. Abdominal circumference 30.17 cm, age 34 weeks 1 days. Femur length 6.99 cm, age 35 weeks 6 days. Sonographic estimate age: 35 weeks 5 days. Sonographic estimated date of delivery: 08/05/21. Estimated Weight: 2574 gm (+/- 376 gm). LMP percentile: 17%. heart rate: 172 beats per minute. number: 1 of 1. IMPRESSION: Single live IUP measuring 35 to 36 weeks gestational age. Biophysical profile score is normal at 8/8. Dictated by: Dictated on workstation # [id number]
== END ==
LOC: RAD 14:00
PROVIDERS: ATTEND Obstetrics & Gynecology
DX: O13.3 Gestational [pregnancy-induced] hypertension without significant proteinuria, third trimester (principal); Z3A.36 36 weeks gestation of pregnancy
CPT/HCPCS: 76805; 76819

== ENCOUNTER 2021-07-10 00:48 | Inpatient (IN) | payer BC ==
[2021-07-10] VITALS (11 sets, daily range): BP systolic 114–141; BP diastolic 61–80
[~2021-07-10] VITALS: Ht 152.4 cm; Wt 100.1 kg
[2021-07-10] MEDS ORDERED: ceFAZolin 2 GM IV Premixed 50 ML IV ONE (06:30)
[2021-07-10] MEDS ORDERED: CITRIC ACID/SOB CIT (BICITRA) 30 ML UDC PO ONE (07:00)
[2021-07-10] MEDS ORDERED: METOCLOPRAMIDE INJ 10 MG/2 ML (REGLAN) IV ONE (07:00)
[2021-07-10] MEDS ORDERED: LACTATED RINGERS 1,000 ML IV PRN ×2 (07:00)
[2021-07-10] MEDS ORDERED: FAMOTIDINE 20MG/2ML IV (PEPCID) IV ONE (07:00)
[2021-07-10] MEDS ORDERED: ONDANSETRON 4 MG/2 ML (SDV) Z0FRAN ONE (07:13)
[2021-07-10] MEDS ORDERED: KETOROLAC 30 MG/ML VIAL ONE (07:13)
[2021-07-10] MEDS ORDERED: BUPIVACAINE 0.25% 30 ML (SENSORCAINE) VIAL ONE (07:13)
[2021-07-10] MEDS ORDERED: OXYTOCIN PRE-MIX DRIP 1,000 ML IV ONE (07:13)
[2021-07-10] MEDS ORDERED: fentaNYL INJ 100 MCG/2 ML AMP ONE (07:14)
[2021-07-10] MEDS ORDERED: TETANUS,DIPTH,PERTUSS P/F (BOOSTRIX) 0.5 ML VIAL IM SCH (07:15)
[2021-07-10] MEDS ORDERED: MEASLES,MUMPS,RUBELLA 1 EA INJ SC SCH (07:15)
[2021-07-10] MEDS ORDERED: OXYTOCIN PRE-MIX DRIP 500 ML IV SCH (07:15)
[2021-07-10] MEDS ORDERED: NALOXONE 0.4 MG/ML 1 ML (NARCAN) VIAL IV PRN ×3 (07:15→10:30)
[2021-07-10] MEDS ORDERED: ONDANSETRON 4 MG/2 ML (SDV) Z0FRAN IVP PRN ×2 (07:15→10:30)
--- NOTE | 2021-07-10 07:19 | History & Physical-OB ---
OB - Chief Complaint & HPI Date/Time Date of Admission: Date of Admission: Jul 10, 2021 at 06:00 Date seen by a Provider: Jul 10, 2021 Time Seen by a Provider: 07:02 Chief Complaint/History OB-Reason for Admission/Chief: Section Hx : 3 Hx Para: 2 Expected Date of Delivery: Jul 30, 2021 Gestational Age in Weeks: 37 Gestational Age in Days: 1 Indication for : desires repeat Other reason for admission: This patient is a scheduled RLTCS moved up to 37 weeks due to reports of poor GHTN control. She was having readings at home of 180s/110s despite antihypertensive treatment. She was also reporting headaches and feeling not well last week. However after increasing her labetalol to 400 bid, the headaches resolved and she was able to make it through the weekend with her BP relatively controlled. This morning she reports doing well, but anxious about delivery. Admission Nurse Assessment Rev: Yes History of Labs A pos Antibody neg RI RPR NR HBsAg NR HIV NR GC neg GBS neg Allergies and Home Medications Allergies Coded Allergies: Sulfa (Sulfonamide Antibiotics) (Unverified Adverse Reaction, Intermediate, 01/28/14) Patient Home Medication List Home Medication List Reviewed: Yes Docosahexanoic Acid ( Dha) 200 Mg Capsule, 200 MG PO DAILY, (Reported) Entered as Reported by: VERONIQUE MERINO on 12/05/181945 Labetalol HCl (Labetalol HCl) 200 Mg Tablet, 400 MG PO BID, (Reported) Entered as Reported by: YURI LARA on 07/06/21 1304 Discontinued Medications Labetalol HCl (Labetalol HCl) 200 Mg Tablet, 200 MG PO BID Discontinued Reason: No Longer Taking Prescribed by: MILEY BURRIS on 06/25/218 OB - History Hx of Present Care: Yes Ultrasounds: Normal mid trimester US Obstetrical Complications: Gestational Hypertension Medical Complications: None Delivery History Hx Blood Disorders: No Adverse Rxn to Tranfusion: No Patient Past Medical History N/A Social History/Family History 2nd Hand Smoke Exposure: No Immunizations Hepatitis A: Yes Hepatitis B: Yes Tetanus Booster (TDap): Less than 5yrs Date of Influenza Vaccine: Sep 06, 2020 OB - Admission Exam Physical Exam HEENT: NCAT Heart: Rhythm Normal Lungs: Clear Abdomen: Gravid Extremities: Normal Reflexes: Normal Heart Rate: 130's Accelerations: Accelerations Present Decelerations: No Decelerations Rn Ed Variability: Average (6-25) Contractions on Admission: >10 Minutes Apart Intensity: Mild OB - Assessment/Plan/Diagnosis Assessment Assessment: section Admission Dx 30 yo @ 37.1 Previous GHTN- reaching severe preE levels GBS neg Admission Status: Inpatient Order (span 2 midnights) Reason for Inpatient Admission: RLTCS at 37 weeks Plan Plan: Section MALCOLM TURNER DO Jul 10, 2021 07:19
--- NOTE | 2021-07-10 07:21 | Discharge Inst-Women's Service ---
Discharge Inst-Women's Serv Depart Medication/Instructions New, Converted or Re-Newed RX: RX on Chart Final Diagnosis POD 2 RLTCS Problems Reviewed?: Yes Consults/Follow Up Additional Follow Up: Yes Orders/Referrals Dr. Vo in 7-10 days and in 6 weeks Activity Activity: Activity as Tolerated Driving Instructions: No Driving for 1 Week NO SMOKING: NO SMOKING Nothing Inside Vagina: No Douching, No [place], No Tampons Diet Discharge Diet: No Restrictions Symptoms to Report to : Bleeding Excessive, Pain Increased, Fever Over 101 Degrees F, Vaginal Bleeding Increase, Questions/Concerns For Any Problems or Questions: Contact Your Physician Skin/Wound Care Infection Signs and Symptoms: Increased Redness, Foul Odor of Wound, Increased Drainage, Skin Itchy or Has a Rash, Increased Swelling Operative Area Clean and Dry: Keep Incision Clean/Dry Stitches/Revelo/Dermabond: Dermabond, Care of Stitches Bathing Instructions: MALCOLM Solis DO Jul 10, 2021 07:21
[2021-07-10] MEDS ORDERED: IBUP-844 PO (07:22)
[2021-07-10] MEDS ORDERED: DCS100C PO (07:22)
[2021-07-10] MEDS ORDERED: ACHD5005 PO (07:22)
[2021-07-10 07:28] LABS: BASOPHILS % (AUTO) 0 % (0-10); EOSINOPHILS # (AUTO) 0.1 10^3/uL (0.0-0.3); EOSINOPHILS % (AUTO) 1 % (0-10); HEMATOCRIT 33 % (35-52); LYMPHOCYTES # (AUTO) 2.1 10^3/uL (1.0-4.0); LYMPHOCYTES % (AUTO) 19 % (12-44); MEAN CORPUSCULAR HEMOGLOBIN 29 pg (25-34); MEAN CORPUSCULAR HGB CONC 33 g/dL (32-36); MEAN CORPUSCULAR VOLUME 89 fL (80-99); MEAN PLATELET VOLUME 10.9 fL (9.0-12.2); MONOCYTES # (AUTO) 0.7 10^3/uL (0.0-1.0); MONOCYTES % (AUTO) 7 % (0-12); NEUTROPHILS # (AUTO) 8.2 10^3/uL (1.8-7.8); NEUTROPHILS % (AUTO) 73 % (42-75); PLATELET COUNT 205 10^3/uL (130-400); WHITE BLOOD COUNT 11.2 10^3/uL (4.3-11.0)
[2021-07-10] MEDS ORDERED: morphine INJ 10 MG/ML 1ML (SYR OR VIAL) IVP ONE (10:30)
[2021-07-10] MEDS ORDERED: ONDANSETRON 4 MG/2 ML (SDV) Z0FRAN IV PRN (10:30)
[2021-07-10] MEDS ORDERED: MEPERIDINE (DEMEROL) INJ 50 MG/ML IVP ONE (10:30)
[2021-07-10] MEDS ORDERED: diphenhydrAMINE 50 MG/ML INJ (BENADRYL) IV PRN (10:30)
[2021-07-10] MEDS ORDERED: METOCLOPRAMIDE INJ 10 MG/2 ML (REGLAN) IV PRN (10:30)
[2021-07-10] MEDS: DOCUSATE SODIUM 100 MG (COLACE) CAP PO SCH ×2 (11:37→21:57)
[2021-07-10] MEDS: HYDROcodone/APAP 5 MG/325 MG (LORTAB) TAB PO PRN ×2 (11:38→17:50)
[2021-07-10] MEDS: KETOROLAC 30 MG/ML VIAL IV SCH ×2 (15:32→21:57)
--- NOTE | 2021-07-10 16:30 | OPERATIVE REPORT ---
DATE OF SERVICE: PREOPERATIVE DIAGNOSES: 1. A 30-year-old G3, P2 at 37 weeks and 1 day gestation. 2. Previous section x2. 3. Gestational hypertension. POSTOPERATIVE DIAGNOSES: 1. A 30-year-old G3, P2 at 37 weeks and 1 day gestation. 2. Previous section x2. 3. Gestational hypertension. PROCEDURE PERFORMED: section. SURGEON: Lisandro Vo DO. ANESTHESIA: Spinal. ESTIMATED BLOOD LOSS: 250 mL. URINE OUTPUT: 45 mL clear at the end of the procedure. FLUIDS: 1000 mL _LR FINDINGS: Grossly normal appearing uterus, bilateral fallopian tubes and ovaries. SPECIMEN SENT: Placenta. INDICATIONS FOR PROCEDURE: This 30-year-old female is a patient, who sought care in my office. Her was uncomplicated until the last three to four weeks when her blood pressure began to elevate despite labetalol administration. The patient's blood pressure last week at home was 170s to 180s over 100s. She is also demonstrating headaches and changes in her vision; however, lab work for preeclampsia and urine protein creatinine ratio for preeclampsia were all negative. I discussed with the patient slightly earlier delivery at term, 37 weeks. Risks of the procedure had been reviewed with the patient previously and reviewed again in the preoperative area. After all of her questions were answered in the preoperative area, consent was obtained and the patient was taken to the operating room. OPERATIVE REPORT IN DETAIL: Once in the operating room, spinal analgesia was found to be adequate, she was placed in a supine position with leftward tilt, prepped and draped in a normal sterile fashion, where a timeout was performed and anesthesia was tested. I then made a Pfannenstiel skin incision through the previously existing scar using knife and carried down to the underlying fascia using Bovie cautery. The fascial incision extended laterally using Bovie cautery. Superior aspect of the fascial incision was then grasped with Janell clamps, tented up and dissected off the underlying rectus muscles. The inferior aspect of the fascial incision was then grasped with Janell clamps, tented up and dissected off the underlying rectus muscles. Rectus muscle was dissected down the midline using Meyer scissors, which exposed the peritoneum, which I entered bluntly and extended using blunt traction. An Osman ring retractor was placed in the peritoneal incision, which offers excellent lateral sidewall retraction. I identified the lower uterine segment, which was found to be thinned out. I made a low transverse incision to the vesicouterine peritoneum and bluntly dissected off the lower uterine segment. I then proceeded with my myotomy until membranes were visualized, at which point I extended the uterine incision laterally and superiorly using bandage scissors. Amniotomy was then performed using an Allis clamp. Clear fluid was noted. The was found in vertex presentation. With gentle fundal pressure, the 's head was elevated up to the incision, where it was delivered through the incision. Nares and oropharynx were bulb suctioned. Anterior and posterior shoulders were delivered. Infant was then brought to the operative field, where the cord was doubly clamped and cut and was handed off to waiting nurses in attendance. Cord blood was collected. Three-vessel cord with intact placenta was delivered spontaneously thereafter. IV Pitocin was initiated to facilitate uterine contraction. Uterine fundus became firm by manual massage. I then exteriorized the uterus and cleared of all endometrial clots and debris. I then proceeded with closing the uterine incision using 0 Vicryl suture in a running locked fashion. Second layer of imbricating 0 Monocryl was placed. Excellent hemostasis was noted after doing this. I then placed the uterus back in the pelvis and copiously irrigated the pelvis using normal saline. Once again, there was no active bleeding noted from any of my dissection planes. I placed Interceed antiadhesive over my low transverse incision. I removed the Osman ring retractor and then proceeded with closing the peritoneum using 3-0 Vicryl suture in a running fashion. The rectus muscle was reapproximated using 0 Vicryl suture in a running fashion. The fascia was reapproximated using 0 Vicryl suture in a running fashion. Subcutaneous tissue was reapproximated using 3-0 plain in an interrupted subcutaneous stitch and skin was reapproximated using 4-0 Monocryl running subcuticular. Dermabond was applied to incision and sterile dressing with adhesive white tape. The patient tolerated the procedure well and sent to recovery area in stable condition. Lap and sponge counts were correct at the end of the procedure. Instrument count was correct as well. Two grams of Ancef given preoperatively for infection prophylaxis. Job ID: [id number] DocumentID: [id number] Dictated Date: 07/10/2021 09:06:52 Medical Collector Date: 07/10/2021 16:29:31 Dictated By: DO KELVIN HANSON
[2021-07-10] MEDS: CATHETER FLUSH 10 ML SYR IV SCH (21:58)
[2021-07-11 00:28] VITALS: BP 140/76
[2021-07-11] MEDS: HYDROcodone/APAP 5 MG/325 MG (LORTAB) TAB PO PRN ×4 (00:28→20:19)
[2021-07-11] MEDS: CATHETER FLUSH 10 ML SYR IV SCH (01:06)
[2021-07-11 04:12] VITALS: BP 149/77
[2021-07-11] MEDS: KETOROLAC 30 MG/ML VIAL IV SCH ×2 (04:12→21:19)
[2021-07-11] MEDS: SIMETHICONE 80 MG (MYLICON) CHEW PO PRN ×3 (05:00→20:18)
[2021-07-11 06:26] LABS: BASOPHILS % (AUTO) 0 % (0-10); EOSINOPHILS # (AUTO) 0.1 10^3/uL (0.0-0.3); EOSINOPHILS % (AUTO) 1 % (0-10); HEMATOCRIT 31 % (35-52); LYMPHOCYTES # (AUTO) 2.2 10^3/uL (1.0-4.0); LYMPHOCYTES % (AUTO) 24 % (12-44); MEAN CORPUSCULAR HEMOGLOBIN 29 pg (25-34); MEAN CORPUSCULAR HGB CONC 33 g/dL (32-36); MEAN CORPUSCULAR VOLUME 88 fL (80-99); MEAN PLATELET VOLUME 11.3 fL (9.0-12.2); MONOCYTES # (AUTO) 0.7 10^3/uL (0.0-1.0); MONOCYTES % (AUTO) 8 % (0-12); NEUTROPHILS # (AUTO) 5.9 10^3/uL (1.8-7.8); NEUTROPHILS % (AUTO) 66 % (42-75); PLATELET COUNT 154 10^3/uL (130-400)
[2021-07-11 07:40] VITALS: BP 136/80
[2021-07-11] MEDS: DOCUSATE SODIUM 100 MG (COLACE) CAP PO SCH ×2 (07:40→20:18)
--- NOTE | 2021-07-11 08:10 | Progress Note ---
KERMIT HERNANDEZ 07/11/21 0810: Subjective Date Seen by a Provider: Jul 11, 2021 Time Seen by a Provider: 08:05 Subjective/Events-last exam Patient is post-op day one from [facility]. Patient was up and ambulating when I came into the room. Wound looks dry, clean, and intact. Patient has had no trouble urinating, has not passed flatus yet. Patient states she feels better after this than her first one. Patient denies abdominal pain, fever, chills. Pt had no concerns or questions at this time. Focused Exam Respiratory: Chest Non Tender, No Accessory Muscle Use, No Respiratory Distress Cardiovascular: Regular Rate, Rhythm, Normal Peripheral Pulses Skin: normal color, warm/dry, other (LTCS incision, looks clean, dry, intact) Objective Exam Last Set of Vital Signs Vital Signs Date Time Temp Pulse Resp B/P (MAP) Pulse Ox O2 Delivery O2 Flow Rate FiO2 07/11/21 04:12 36.6 82 20 149/77 (101) 98 Room Air Capillary Refill : Less Than 3 SecondsLess Than 3 Seconds I&O Intake and Output 07/11/21 00:00 Intake Total 1300 ml Output Total 545 ml Balance 755 ml Intake Oral 800 ml IV Total 500 ml Output Urine Total 545 ml Daily Weight Change No General: Alert, Oriented X3, No Acute Distress HEENT: PERRLA Lungs: Normal Air Movement Heart: Regular Rate Abdomen: Soft, Other (mild tenderness; LTCS) Extremities: No Cyanosis, Normal Pulses Skin: Other (LTCS incision, C,D,I) Neuro: Normal Gait, Normal Speech Results Lab Laboratory Tests 07/11/21 06:05: White Blood Count 9.0, Red Blood Count 3.51L, Hemoglobin 10.0L, Hematocrit 31L, Mean Corpuscular Volume 88, Mean Corpuscular Hemoglobin 29, Mean Corpuscular Hemoglobin Concent 33, Red Cell Distribution Width 13.3, Platelet Count 154, Mean Platelet Volume 11.3, Immature Granulocyte % (Auto) 0, Neutrophils (%) (Auto) 66, Lymphocytes (%) (Auto) 24, Monocytes (%) (Auto) 8, Eosinophils (%) (Auto) 1, Basophils (%) (Auto) 0, Neutrophils # (Auto) 5.9, Lymphocytes # (Auto) 2.2, Monocytes # (Auto) 0.7, Eosinophils # (Auto) 0.1, Basophils # (Auto) 0.0, Immature Granulocyte # (Auto) 0.0 Procedures Procedures Post 2nd LTCS Assessment/Plan Assessment/Plan Assess & Plan/Chief Complaint Assessment Repeat LTCS Post- anemia HTN Plan Continue pain management PRN Monitor HTN, consider medical management if no improvement Continue wound management, monitor for infx Repeat labs tomorrow AM, continue to monitor Hgb MALCOLM TURNER DO 07/11/21 0838: Supervisory-Addendum Brief Verification & Attestation Participated in pt care: history, MDM, physical Personally performed: exam Care discussed with: Medical Student Procedures: n/a Results interpretation: Verified all documentation Incision: c/d/i POD 1 RLTCS Acute blood loss anemia- Ferrous sulfate supplementation ordered. GHTN - labile control, restarting Labetalol 200 mg bid. Verification and Attestation of Medical Student E/M Service A medical student performed and documented this service in my presence. I reviewed and verified all information documented by the medical student and made modifications to such information, when appropriate. I personally performed the physical exam and medical decision making. Malcolm Turner Jul 11, 2021,08:37 KERMIT HERNANDEZ Jul 11, 2021 08:10 MALCOLM TURNER DO Jul 11, 2021 08:38
[2021-07-11] MEDS: LABETALOL 200 MG (NORMODYNE) TAB PO SCH ×2 (10:24→20:18)
[2021-07-11] MEDS: IBUPROFEN 600 MG (MOTRIN) TAB PO SCH ×3 (10:25→21:50)
--- NOTE | 2021-07-11 13:02 | Anesthesia-Regional Post-Op ---
Regional Patient Condition Mental Status: Alert, Oriented x3 Circulation: Same as Pre-Op Headache: Absent Sensation: Full Recovery Motor Block: Absent Post Op Complications Complications None Follow Up Care/Instructions Patient Instructions None needed. Anesthesia/Patient Condition Patient is doing well, no complaints, stable vital signs, no apparent adverse anesthesia problems. JASON SON DO Jul 11, 2021 13:01
[2021-07-11 13:40] VITALS: BP 150/81
[2021-07-11 20:40] VITALS: BP 147/76
[2021-07-12 03:40] VITALS: BP 154/81
[2021-07-12] MEDS: IBUPROFEN 600 MG (MOTRIN) TAB PO SCH ×2 (03:50→09:33)
[2021-07-12] MEDS: SIMETHICONE 80 MG (MYLICON) CHEW PO PRN ×2 (05:41→09:40)
[2021-07-12] MEDS: HYDROcodone/APAP 5 MG/325 MG (LORTAB) TAB PO PRN (05:41)
--- NOTE | 2021-07-12 08:09 | Postpartum Progress Note ---
AKIKO BOOKER 07/12/21 8:09am: Note Note Day # 2 Subjective: Patient is without complaints. Ambulating. Slight gas pain overnight. Pain is well controlled with oral pain medications. Incision is dry without erythema and intact. Objective: Physical Exam: General - Alert and oriented, no apparent distress Abdomen - Soft, non-distended, fundus firm at umbilicus Extremities - edema in feet and hands Heart- RRR Lungs- CTAB Assessment: Repeat LTCS post- day #2 Anemia HTN Recovering well Plan: Routine care. Encourage breast feeding. Encourage ambulation. Ferrous sulfate supplementation Begin medical management of HTN upon discharge Plan for discharge today Vitals - Labs Vital Signs - I&O Vital Signs Date Time Temp Pulse Resp B/P (MAP) Pulse Ox O2 Delivery O2 Flow Rate FiO2 07/12/21 03:40 36.2 78 20 154/81 (105) 98 Room Air 07/11/21 20:40 36.4 84 20 147/76 (99) 98 Room Air 07/11/21 13:40 36.3 91 20 150/81 (104) Room Air I & O 07/12/21 07:00 Intake Total 2100 ml Output Total 1375 ml Balance 725 ml MALCOLM TURNER DO 07/12/21 8:35am: Note Note Verification and Attestation of Medical Student E/M Service A medical student performed and documented this service in my presence. I reviewed and verified all information documented by the medical student and made modifications to such information, when appropriate. I personally performed the physical exam and medical decision making. Malcolm Turner, Jul 12, 2021,08:35 AKIKO BOOKER Jul 12, 2021 8:09 am MALCOLM TURNER DO Jul 12, 2021 8:35 am
[2021-07-12 09:30] VITALS: BP 139/72
[2021-07-12] MEDS: DOCUSATE SODIUM 100 MG (COLACE) CAP PO SCH (09:32)
[2021-07-12] MEDS: LABETALOL 200 MG (NORMODYNE) TAB PO SCH (09:32)
== END 2021-07-12 10:55 | disposition home or self-care (01) | DRG 788 ==
LOC: LDRP 06:00
PROVIDERS: ADMIT Obstetrics & Gynecology; ATTEND Obstetrics & Gynecology
PROC: 10D00Z1 Extraction of Products of Conception, Low, Open Approach (ICD-10-PCS; principal; 2021-07-10 07:44)
DX: O13.4 Gestational [pregnancy-induced] hypertension without significant proteinuria, complicating childbirth (principal); O34.211 Maternal care for low transverse scar from previous cesarean delivery; O90.81 Anemia of the puerperium; Z37.0 Single live birth; Z79.899 Other long term (current) drug therapy; Z3A.37 37 weeks gestation of pregnancy; Z88.2 Allergy status to sulfonamides
CPT/HCPCS: 36415; 85025; 86850; 86900; 86901; 94664

== ENCOUNTER → 2022-05-09 | Outpatient (CLI) | payer BC ==
[~2022-05-09] VITALS: Ht 152.4 cm; Wt 95.5 kg
[~2022-05-09] MED LIST changes: +DOCU-239 PO; +HYDR-3817 PO
== END | disposition home or self-care (01) ==
LOC: PREOP 10:52
PROVIDERS: ATTEND Surgery
DX: Z01.818 Encounter for other preprocedural examination (principal)

== ENCOUNTER 2022-05-10 10:49 | Day surgery (SDC) | payer BC ==
[2022-05-10] VITALS (10 sets, daily range): BP systolic 108–134; BP diastolic 53–69
[~2022-05-10] VITALS: Ht 152.4 cm; Wt 95.5 kg
[~2022-05-10 10:49] MED LIST changes: -HYDR-3817 PO
--- NOTE | 2022-05-10 11:10 | Progress Note-Pre Operative ---
Pre-Operative Progress Note H&P Reviewed The H&P was reviewed, patient examined and no changes noted. Date Seen by Provider: May 10, 2022 Time Seen by Provider: 11:10 Date H&P Reviewed: May 10, 2022 Time H&P Reviewed: 11:05 Pre-Operative Diagnosis: Chronic acalculous cholecystitis DONNA BRIGGS APRN May 10, 2022 11:10
[2022-05-10] MEDS ORDERED: ceFAZolin 2 GM IV Premixed 50 ML ONE (11:12)
[2022-05-10] MEDS ORDERED: HYDR-3817 PO (11:12)
--- NOTE | 2022-05-10 11:12 | Discharge Inst-Surgical ---
D/C Lap Instructions-KIDO Reconcile Patient Problems Problems Reviewed?: Yes New, Converted, or Re-Newed RX: RX on Chart Follow Up Appt in 2 weeks Activity as tolerated No driving for 24 hours No driving while on pain medications Incentive Spirometry use every 2 hours while awake Regular Diet Symptoms to Report: Fever over 101 degree F, Nausea/Vomiting Infection Signs and Symptoms to report: Increased redness, Foul odor of wound, Increased drainage Bathing instructions: May shower Operative Area Clean/Dry; Keep incision clean/dry If any problems/questions: Contact your physician or go to Emergency Room DONNA BRIGGS APRN May 10, 2022 11:12
[2022-05-10] MEDS ORDERED: morphine INJ 10 MG/ML 1ML (SYR OR VIAL) IVP PRN (11:15)
[2022-05-10] MEDS ORDERED: ACETAMINOPHEN 325 MG TABLET PO PRN (11:15)
[2022-05-10] MEDS ORDERED: ONDANSETRON 4 MG/2 ML (SDV) Z0FRAN IVP PRN ×2 (11:15→13:30)
[2022-05-10] MEDS ORDERED: HYDROcodone/APAP 5 MG/325 MG (LORTAB) TAB PO ONE (11:15)
[2022-05-10] MEDS ORDERED: LIDOCAINE/EPI 2% 1:100,00 (XYLOCAINE) 20 ML VIAL ONE (11:17)
[2022-05-10] MEDS ORDERED: ONDANSETRON 4 MG/2 ML (SDV) Z0FRAN ONE (11:49)
[2022-05-10] MEDS ORDERED: proPOfol 200 MG/20 ML (DIPRIVAN) VIAL IV ONE (11:49)
[2022-05-10] MEDS ORDERED: SEVOFLURANE (ULTANE) 15 ML INHAL SOLN ONE ×2 (11:49→13:00)
[2022-05-10] MEDS ORDERED: fentaNYL INJ 100 MCG/2 ML AMP ONE (11:49)
[2022-05-10] MEDS ORDERED: MIDAZOLAM 2 MG/2 ML (VERSED) VIAL ONE (11:49)
[2022-05-10] MEDS ORDERED: LIDOCAINE PF 2% 5 ML (XYLOCAINE) VIAL ONE (11:49)
[2022-05-10] MEDS ORDERED: ceFAZolin 2 GM IV Premixed 50 ML IV ONE (12:30)
[2022-05-10] MEDS ORDERED: LACTATED RINGERS 1,000 ML IV PRN (12:30)
[2022-05-10] MEDS ORDERED: GLYCOPYRROLATE 0.2 MG/ML (ROBINUL) 2 ML VIAL ONE ×2 (12:47→13:02)
[2022-05-10] MEDS ORDERED: ROCURONIUM 50 MG/5 ML (ZEMURON) VIAL IV ONE (13:00)
[2022-05-10] MEDS ORDERED: NEOSTIGMINE (BLOXIVERZ ) 1 MG/1ML 10 ML VIAL ONE (13:01)
[2022-05-10] MEDS ORDERED: KETOROLAC 30 MG/ML VIAL ONE (13:02)
--- NOTE | 2022-05-10 13:09 | Progress Note-Post Operative ---
Post-Operative Progess Note Surgeon (s)/Solution Mixer (s) Surgeon EDILBERTO JOHN MD Solution Mixer: belle shah EQUIPMENT TESTER Pre-Operative Diagnosis Chronic acalculous cholecystitis Post-Operative Diagnosis same Procedure & Operative Findings Date of Procedure 05/10/22 Procedure Performed/Findings laparoscopic cholecystectomy Anesthesia Type get Estimated Blood Loss Estimated blood loss (mL): minimal Specimens/Packing Specimens Removed gallbladder EDILBERTO JOHN MD May 10, 2022 13:09
[2022-05-10] MEDS ORDERED: HYDROmorphone 2 MG/ML VIAL (DILAUDID) IV ONE (13:30)
[2022-05-10] MEDS ORDERED: HYDROcodone/APAP 5 MG/325 MG (LORTAB) TAB ONE (14:08)
--- NOTE | 2022-05-10 21:45 | OPERATIVE REPORT ---
DATE OF SERVICE: 05/10/2022 ATTENDING PRIMARY CARE PHYSICIAN: Lisandro Vo DO PREOPERATIVE DIAGNOSIS: Symptomatic chronic acalculous cholecystitis. POSTOPERATIVE DIAGNOSIS: Symptomatic chronic acalculous cholecystitis. PROCEDURE: Laparoscopic cholecystectomy. SURGEON: Edilberto John MD SCHOOL CROSSING GUARD: Armani Solares APRN. ANESTHESIA: General endotracheal. ESTIMATED BLOOD LOSS: Minimal. FINDINGS: Thickened gallbladder wall. Mucous within the gallbladder, likely indicating a chronic hydrops of the gallbladder. DISPOSITION: The patient tolerated the procedure well. INDICATIONS: The patient is a 31-year-old female who has had multiple issues with pain in the right upper abdominal quadrant with radiation towards the back, usually after eating meals. She states that this was severely exacerbated with her last . She did undergo a CT scan as well as ultrasonography, which did show gallbladder wall thickening. DESCRIPTION OF PROCEDURE: The patient was brought to the operating room, laid supine on the table. After adequate IV pain and sedative medications and general endotracheal intubation, the abdomen was prepped and draped in standard surgical fashion. A 0.5% Marcaine with epinephrine was used to anesthetize overlying skin in the left upper abdominal quadrant and a transverse skin incision made using 15 blade. An 0 silk suture was applied to the medial aspect incision for retraction and a Veress needle inserted with a low opening pressure of 0 mmHg. The abdomen was then insufflated to 15 mmHg pressure. Veress needle removed and a 5 mm XL trocar placed followed by a 5 mm 45-degree angle laparoscope visualizing the peritoneal cavity. A 4-quadrant abdominal exploration was performed. There was a contracted gallbladder with a mild gallbladder wall thickening, mild hepatomegaly. Under direct visualization, we then proceeded to place a supraumbilical 10 mm port after the skin and peritoneal lining were anesthetized using 0.5% were used to anesthetize the skin and peritoneal lining. In a similar manner, a right upper abdominal quadrant 5 mm port was placed. The patient was then placed in reverse Trendelenburg position as well as plane right side up, left side down. The fundus of the gallbladder was retracted anteriorly and superiorly. The hepatoduodenal ligament was then dissected using blunt dissection as well as electrocautery using a hook instrument as well as a [place] dissector. The entire critical view of safety was identified including the triangle of Calot as well as the cystic duct and artery as the only two structures going into the gallbladder as well as the cystic plate behind the proximal gallbladder. A timeout was then taken and the cystic duct and artery were then clipped proximally and distally and cut with EndoShears. The gallbladder was then dissected off of the liver bed using cautery on hook instrument with visualization of good hemostasis as well as no leaking ducts of Luschka. The gallbladder was removed through the 10 mm port site using an EndoCatch bag. The gallbladder was then removed. The fascia and peritoneum to the 10 mm port site were then closed under direct visualization using a Imer-Bronson device and an 0 Vicryl suture. The abdomen was then desufflated and remaining ports removed. All skin incisions were closed using 4-0 Monocryl running subcuticular sutures. Wounds were then cleaned and covered with Dermabond. The patient tolerated the procedure well. We will start IV normal pain medication as well as a clear liquid diet. Once she is tolerating clears, has good pain control with oral pain medications, ambulating well, we will discharge her home where she will be instructed to do no heavy lifting or exertion for the next two weeks. Job ID: [id number] DocumentID: [id number] Dictated Date: 05/10/2022 13:17:11 Sql Report Analyst Date: 05/10/2022 21:44:34 Dictated By: EDILBERTO JOHN MD
== END 2022-05-10 15:20 | disposition home or self-care (01) ==
LOC: SDC 10:49
PROVIDERS: ATTEND Surgery
DX: K81.1 Chronic cholecystitis (principal); K82.8 Other specified diseases of gallbladder; E66.01 Morbid (severe) obesity due to excess calories; Z68.41 Body mass index [BMI] 40.0-44.9, adult; Z88.2 Allergy status to sulfonamides
CPT/HCPCS: 84703; 87081; 88304; 94664

== ENCOUNTER → 2022-07-11 | Outpatient (CLI) | payer BC ==
[~2022-07-11] MED LIST changes: +BARIUM for suspension 96% w/w (Vanilla Silq Medium Density) PO ONE; +BARIUM for suspension 98% w/w (Vanilla Silq High Density) PO ONE; +HYDR-3817 PO; +LABE200T10 PO; -LABE200T7 PO
--- NOTE | 2022-07-11 10:59 | Diagnostic Imaging Report ---
INDICATION: Reflux. TECHNIQUE: The patient ingested effervescent crystals as well as thin and thick barium and imaging over the esophagus, stomach, and proximal small bowel was performed. A total of 0.7 minutes of fluoroscopic time was utilized. FINDINGS: The preliminary radiograph of the abdomen is unremarkable. The esophagus has a smooth contour. No mass or stricture is identified. No hiatal hernia or gastroesophageal reflux was demonstrated. The stomach has a normal configuration. There is prompt emptying into the small bowel. The duodenal bulb is without deformity. No mass or ulceration is identified. IMPRESSION: Unremarkable upper GI study. Dictated by: Dictated on workstation # [id number]
== END ==
LOC: RAD 09:17
PROVIDERS: ATTEND Surgery
DX: K21.9 Gastro-esophageal reflux disease without esophagitis (principal)
CPT/HCPCS: 74246

== ENCOUNTER 2022-09-14 05:31 | Outpatient (CLI) | payer BC ==
[~2022-09-14] VITALS: Ht 152.4 cm; Wt 93.1 kg
[~2022-09-14 05:31] MED LIST changes: -BARIUM for suspension 96% w/w (Vanilla Silq Medium Density) PO ONE; -BARIUM for suspension 98% w/w (Vanilla Silq High Density) PO ONE
== END 2022-09-14 12:13 ==
LOC: PREOP 05:31
PROVIDERS: ATTEND Surgery
DX: Z01.818 Encounter for other preprocedural examination (principal)

== ENCOUNTER 2022-09-27 09:52 | Day surgery (SDC) | payer BC ==
[~2022-09-27] VITALS: Ht 152.4 cm; Wt 86.6 kg
[2022-09-27] VITALS (13 sets, daily range): BP systolic 108–135; BP diastolic 46–74
--- NOTE | 2022-09-27 10:05 | Progress Note-Pre Operative ---
Pre-Operative Progress Note Date H&P Reviewed: Sep 27, 2022 Time H&P Reviewed: 10:05 History & Physical: H&P Reviewed, Patient Examed, No changes noted Pre-Operative Diagnosis: Morbid obesity DONNA BRIGGS APRN Sep 27, 2022 10:05
--- NOTE | 2022-09-27 10:07 | Discharge Inst-Surgical ---
D/C Lap Instructions-KIDO Reconcile Patient Problems Problems Reviewed?: Yes Follow Up Appt in 2 weeks Activity as tolerated No driving for 24 hours No driving while on pain medications Incentive Spirometry use every 2 hours while awake Clear liquid diet for 2 weeks No carbonated beverages, leafy greens, breads, or crackers for 6 weeks Symptoms to Report: Fever over 101 degree F, Nausea/Vomiting Infection Signs and Symptoms to report: Increased redness, Foul odor of wound, Increased drainage Bathing instructions: May shower Operative Area Clean/Dry; Keep incision clean/dry If any problems/questions: Contact your physician or go to Emergency Room DONNA BRIGGS APRN Sep 27, 2022 10:07
[2022-09-27] MEDS ORDERED: BUP/EPI 0.25% 1:200,000 (MARCAINE) 30 ML VIAL ONE (10:12)
[2022-09-27] MEDS ORDERED: ceFAZolin INJECTION 2,000 MG in NS (IVPB) 50 ML IV ONE (10:15)
[2022-09-27] MEDS: LACTATED RINGERS 1,000 ML IV PRN ×2 (10:20→12:14)
[2022-09-27] MEDS ORDERED: fentaNYL INJ 100 MCG/2 ML AMP ONE ×2 (10:22→12:57)
[2022-09-27] MEDS ORDERED: SEVOFLURANE (ULTANE) 15 ML INHAL SOLN ONE ×2 (10:22→12:11)
[2022-09-27] MEDS ORDERED: ONDANSETRON 4 MG/2 ML (SDV) Z0FRAN ONE ×2 (10:22→12:36)
[2022-09-27] MEDS ORDERED: LIDOCAINE PF 2% 5 ML (XYLOCAINE) VIAL ONE (10:22)
[2022-09-27] MEDS ORDERED: proPOfol 200 MG/20 ML (DIPRIVAN) VIAL IV ONE (10:22)
[2022-09-27] MEDS ORDERED: ROCURONIUM 10 MG/ML 5 ML SYRINGE IV ONE (10:22)
[2022-09-27] MEDS ORDERED: MIDAZOLAM 2 MG/2 ML (VERSED) VIAL ONE (10:22)
[2022-09-27] MEDS ORDERED: ceFAZolin INJECTION 2,000 MG ONE (10:24)
[2022-09-27] MEDS ORDERED: NS (IVPB) 50 ML ONE (10:24)
[2022-09-27] MEDS ORDERED: morphine INJ 10 MG/ML 1ML (SYR OR VIAL) ONE ×2 (11:52→12:36)
[2022-09-27] MEDS ORDERED: GLYCOPYRROLATE 0.2 MG/ML (ROBINUL) 2 ML VIAL ONE (12:02)
[2022-09-27] MEDS ORDERED: NEOSTIGMINE 3 MG/3 ML VIAL ONE (12:02)
--- NOTE | 2022-09-27 12:16 | Progress Note-Post Operative ---
Post-Operative Progess Note Surgeon (s)/Chief Deputy Clerk/Bailiff (s) Surgeon EDILBERTO JOHN MD Chief Deputy Clerk/Bailiff: belle shah SOLE TRIMMER Pre-Operative Diagnosis Morbid obesity, depression Post-Operative Diagnosis same Procedure & Operative Findings Date of Procedure 09/27/22 Procedure Performed/Findings laparoscopic gastric sleeve resection. Anesthesia Type get Estimated Blood Loss Estimated blood loss (mL): minimal Specimens/Packing Specimens Removed stomach EDILBERTO JOHN MD Sep 27, 2022 12:16
[2022-09-27] MEDS ORDERED: diphenhydrAMINE 50 MG/ML INJ (BENADRYL) IV PRN ×2 (12:30)
[2022-09-27] MEDS ORDERED: metroNIDAZOLE 500MG/100ML IVPB 100 ML IV SCH (12:30)
[2022-09-27] MEDS ORDERED: RT-ALBUTEROL SULF 2.5 MG/3 ML PRE-MIX VIAL INH SCH (12:30)
[2022-09-27] MEDS ORDERED: ONDANSETRON 4 MG/2 ML (SDV) Z0FRAN IV PRN (12:30)
[2022-09-27] MEDS ORDERED: MEPERIDINE (DEMEROL) INJ 50 MG/ML IVP ONE (12:30)
[2022-09-27] MEDS ORDERED: ONDANSETRON 4 MG/2 ML (SDV) Z0FRAN IVP PRN (12:30)
[2022-09-27] MEDS ORDERED: morphine INJ 10 MG/ML 1ML (SYR OR VIAL) IVP ONE (12:30)
[2022-09-27] MEDS ORDERED: fentaNYL INJ 100 MCG/2 ML AMP IVP ONE (12:30)
[2022-09-27] MEDS ORDERED: NALOXONE 0.4 MG/ML 1 ML (NARCAN) VIAL IV PRN ×2 (12:30)
[2022-09-27] MEDS ORDERED: METOCLOPRAMIDE INJ 10 MG/2 ML (REGLAN) IV PRN ×2 (12:30)
[2022-09-27] MEDS ORDERED: NS IV 1000 ML 1,000 ML IV SCH ×2 (12:30)
[2022-09-27] MEDS ORDERED: ceFAZolin INJECTION 2,000 MG in NS (IVPB) 50 ML IV SCH (14:00)
[2022-09-27] MEDS: 1/2 NS W/KCL 20 MEQ/L 1,000 ML IV SCH ×3 (15:00→22:37)
[2022-09-27] MEDS ORDERED: fentaNYL PCA 1,000 MCG/100 ML IV SCH (15:15)
[2022-09-27] MEDS: metroNIDAZOLE 500MG/100ML IVPB 100 ML IV SCH ×2 (15:31→23:33)
[2022-09-27] MEDS: METOCLOPRAMIDE INJ 10 MG/2 ML (REGLAN) IVP SCH ×2 (18:20→23:33)
[2022-09-27] MEDS: ONDANSETRON 4 MG/2 ML (SDV) Z0FRAN IVP SCH ×2 (18:20→23:33)
[2022-09-27] MEDS ORDERED: RT-ALBUTEROL SULF 2.5 MG/3 ML PRE-MIX VIAL ONE (18:37)
[2022-09-27] MEDS: RT-ALBUTEROL SULF 2.5 MG/3 ML PRE-MIX VIAL INH SCH (18:53)
[2022-09-27] MEDS: ceFAZolin INJECTION 2,000 MG in NS (IVPB) 50 ML IV SCH (20:17)
[2022-09-27] MEDS: ENOXAPARIN INJECTION 30 MG/0.3 ML SYR SC SCH (20:17)
--- NOTE | 2022-09-27 23:23 | OPERATIVE REPORT ---
DATE OF SERVICE: 09/27/2022 PRIMARY CARE PHYSICIAN: Lisandro Vo DO PREOPERATIVE DIAGNOSES: Morbid obesity, depression. POSTOPERATIVE DIAGNOSES: Morbid obesity, depression. PROCEDURE: Laparoscopic gastric sleeve resection. SURGEON: Edilberto John MD ANESTHESIA: General endotracheal. ESTIMATED BLOOD LOSS: Minimal. FINDINGS: No hiatal hernia. DISPOSITION: The patient tolerated the procedure well. INDICATIONS: The patient is a 31-year-old female who has gained the majority of her weight in the past 8 years. She has tried a number of different diet and exercise attempts with no success. She has tried exercise programs utilizing [employer] and this would help her lose some weight; however, she would tend to regain her weight back. She has also tried medications with phentermine, again after discontinuation of the medication, she would regain the weight back. She also has started a number of different diet regimens including low carbohydrate, low-calorie diets, again with minimal success. DESCRIPTION OF PROCEDURE: The patient was brought to the operating room and laid supine on the table. After adequate IV pain and sedative medications and general endotracheal intubation, the abdomen was prepped and draped in standard surgical fashion. 0.5% Marcaine with epinephrine was then used to anesthetize the overlying skin in the left upper abdominal quadrant and a transverse skin incision was made using a #15 blade. An 0 silk suture was applied to the medial aspect of the incision for traction and a Veress needle inserted with a low opening pressure of 0 mmHg. The abdomen was then insufflated to 15 mmHg pressure. The Veress needle removed and a 5 mm XL trocar placed, followed by a 5 mm 45-degree angle laparoscope visualized the peritoneal cavity. A 4-quadrant abdominal exploration was performed. There was surgically absent gallbladder. No hiatal hernia identified. Under direct visualization, we then proceeded to place a mid abdominal, left of midline 10 mm port after the skin and peritoneal lining were anesthetized using 0.5% Marcaine with epinephrine, and a transverse skin incision made using a #15 blade. In a similar manner, a mid abdominal aorta, right of midline 15 mm port was placed, followed by a right upper abdominal quadrant 5 mm port. An area in the epigastric region was then anesthetized and a skin incision made using the 11 blade. A tract was then created through the abdominal wall layers using a trocar to a 5 mm port and through this opening, a medium sized Marine liver retractor was placed on the left lobe of the liver retracted anteriorly and superiorly. The patient was then placed in reverse Trendelenburg position. We then measured 6 cm from the pylorus along the greater curvature and marked this with a marking pen. The gastrocolic ligament next to the stomach was then opened using a Sonicision entering the lesser sac. We then proceeded with the inferior dissection until we were approximately 2 cm below our marking using the Sonicision. We then proceeded cephalad taking down the short gastric vessels as well as the angle of His, connective tissue fibers until the left ric of the diaphragm was identified. Good hemostasis was observed. A 36-Malawian ViSiGi was then placed into the stomach under direct visualization and directed into the pylorus. Using this as our staple line guide, we then proceeded with our gastric sleeve resection. I first staple load was a 45 mm black load approximately 2 cm below our marking. We then proceeded with two 60 mm black loads, followed by a 60mm purple load, leaving 2 cm next to the GE junction and completing our gastric sleeve resection. Good hemostasis was observed. The staple line corners were then clipped with 5 mm clips. Tisseel fibrin glue was then placed onto the staple line and the omentum placed over the staple line with visualization of good hemostasis. Before this, a leak test was performed and the saline placed around the stomach and the stomach insufflated with air to 35 mmHg pressure with no leak identified. The air was then suctioned and the ViSiGi removed completely. The stomach was removed through the 15 mm port site and the fascia and peritoneum to the 15 and 10 mm port sites were then closed under direct visualization using a Imer-Bronson device and 0 Vicryl suture. The abdomen was desufflated and the remaining ports were removed. All skin incisions were closed using 4-0 Monocryl running subcuticular sutures. The wounds were then cleaned and covered with Dermabond. The patient tolerated the procedure well. We will admit her 23-hour observation and proceed with DVT prophylaxis with early ambulation, calf SCDs as well as Lovenox injections. Tomorrow morning, we will start phase I clear liquid diet and once she is tolerating clears, has good pain control with oral pain medication and is ambulating well, we will discharge her home where she will be instructed to continue to follow up phase I clear liquid diet for the next 2 weeks. Job ID: [id number] DocumentID: [id number] Dictated Date: 09/27/2022 12:37:40 Online Tutor Date: 09/27/2022 23:22:00 Dictated By: EDILBERTO JOHN MD MTDD
[2022-09-28 00:05] VITALS: BP 138/71
[2022-09-28] MEDS: RT-ALBUTEROL SULF 2.5 MG/3 ML PRE-MIX VIAL INH SCH ×4 (02:34→15:39)
[2022-09-28] MEDS: ONDANSETRON 4 MG/2 ML (SDV) Z0FRAN IV PRN ×2 (03:38→09:08)
[2022-09-28 04:40] VITALS: BP 154/74
[2022-09-28 05:52] LABS: HEMATOCRIT 41 % (35-52); HEMOGLOBIN 13.9 g/dL (11.5-16.0); MEAN CORPUSCULAR HEMOGLOBIN 29 pg (25-34); MEAN CORPUSCULAR HGB CONC 34 g/dL (32-36); MEAN CORPUSCULAR VOLUME 86 fL (80-99); MEAN PLATELET VOLUME 11.5 fL (9.0-12.2); PLATELET COUNT 240 10^3/uL (130-400); WHITE BLOOD COUNT 17.1 10^3/uL (4.3-11.0)
[2022-09-28] MEDS: ceFAZolin INJECTION 2,000 MG in NS (IVPB) 50 ML IV SCH ×2 (05:55→14:31)
[2022-09-28] MEDS: METOCLOPRAMIDE INJ 10 MG/2 ML (REGLAN) IVP SCH ×2 (05:55→11:14)
[2022-09-28] MEDS: ONDANSETRON 4 MG/2 ML (SDV) Z0FRAN IVP SCH ×2 (05:55→11:14)
[2022-09-28] MEDS: 1/2 NS W/KCL 20 MEQ/L 1,000 ML IV SCH ×2 (05:56→14:31)
[2022-09-28 06:10] LABS: POTASSIUM 4.6 MMOL/L (3.6-5.0)
[2022-09-28 06:11] LABS: CALCIUM 9.4 MG/DL (8.5-10.1)
[2022-09-28 06:15] LABS: CREATININE SERUM 0.68 MG/DL (0.60-1.30)
[2022-09-28 07:53] VITALS: BP 147/85
[2022-09-28] MEDS: ENOXAPARIN INJECTION 30 MG/0.3 ML SYR SC SCH (08:34)
[2022-09-28] MEDS: metroNIDAZOLE 500MG/100ML IVPB 100 ML IV SCH (08:34)
[2022-09-28] MEDS ORDERED: PANTOPRAZOLE 40 MG (PROTONIX) VIAL IV SCH ×2 (09:00)
[2022-09-28] MEDS ORDERED: SENNA W/DOCUSATE (SENOKOT S) TABLET PO SCH ×2 (09:00)
[2022-09-28] MEDS ORDERED: PANTOPRAZOLE 40 MG (PROTONIX) TAB PO SCH (09:00)
[2022-09-28 11:50] VITALS: BP 147/85
[2022-09-28] MEDS ORDERED: METOCLOPRAMIDE INJ 10 MG/2 ML (REGLAN) IVP PRN (12:30)
[2022-09-28] MEDS ORDERED: ONDANSETRON 4 MG/2 ML (SDV) Z0FRAN IVP PRN (12:30)
[2022-09-28] MEDS ORDERED: HYDROcodone/APAP 7.5MG-325 MG/15 ML (LORTAB) UDC PO PRN (13:15)
--- NOTE | 2022-09-28 13:21 | Progress Note ---
Subjective Date Seen by a Provider: Sep 28, 2022 Time Seen by a Provider: 13:00 Subjective/Events-last exam Patient reports nausea and vomiting this morning but is better since she has not used her [employer] as much. Minimal pain. Starting to eat some ice chips and tolerating. Reports has been ambulating well. Objective Exam Vital Signs Date Time Temp Pulse Resp B/P (MAP) Pulse Ox O2 Delivery O2 Flow Rate FiO2 09/28/22 11:50 37.8 98 18 147/85 (105) 100 Room Air 09/28/22 11:09 98 Room Air 09/28/22 08:00 Room Air 09/28/22 08:00 18 09/28/22 07:53 36.6 91 18 147/85 (105) 100 Room Air 09/28/22 07:34 99 Room Air 09/28/22 04:40 36.6 94 20 154/74 (100) 100 Room Air 09/28/22 02:33 98 Room Air 09/28/22 00:05 36.5 88 20 138/71 (93) 100 Room Air 09/27/22 20:35 18 09/27/22 20:30 Room Air 09/27/22 19:44 36.3 67 20 131/64 (86) 100 Room Air 09/27/22 18:59 97 Room Air 09/27/22 18:08 36.3 77 18 135/62 (86) 97 Nasal Cannula 09/27/22 17:04 36.4 84 18 129/58 (81) 99 Room Air 09/27/22 16:00 36.0 80 16 112/51 (71) 95 Room Air 09/27/22 15:00 36.1 85 16 116/56 (76) 95 Room Air 09/27/22 13:30 36.2 20 133/68 (89) 97 Room Air 09/27/22 13:30 Room Air 09/27/22 13:20 20 133/68 (89) 96 Room Air I & O 09/28/22 07:00 Intake Total 1050 ml Output Total 1530 ml Balance -480 ml Capillary Refill : Less Than 3 Seconds General Appearance: No Apparent Distress, WD/WN Neck: Normal Inspection, Supple Respiratory: No Accessory Muscle Use, No Respiratory Distress Cardiovascular: Regular Rate, Rhythm, No Edema Gastrointestinal: normal bowel sounds, soft, tenderness Extremity: Normal Inspection, Normal Range of Motion Neurologic/Psychiatric: Alert, Oriented x3 Skin: Normal Color, Warm/Dry, Other Results Lab Laboratory Tests 09/28/22 05:29: White Blood Count 17.1H, Red Blood Count 4.80, Hemoglobin 13.9, Hematocrit 41, M lula Corpuscular Volume 86, Mean Corpuscular Hemoglobin 29, Mean Corpuscular Hemoglobin Concent 34, Red Cell Distribution Width 13.6, Platelet Count 240, Mean Platelet Volume 11.5, Sodium Level 133L, Potassium Level 4.6, Chloride Level 109H, Carbon Dioxide Level 7*L, Anion Gap 17H, Blood Urea Nitrogen 2L, Creatinine 0.68, Estimat Glomerular Filtration Rate 120, BUN/Creatinine Ratio 3, Glucose Level 91, Calcium Level 9.4 Microbiology 09/27/22 MRSA Screen - Final, Complete MRSA not isolated Assessment/Plan Assessment/Plan Assess & Plan/Chief Complaint A 31 year old female with Morbid obesity who is S/P lap gastric sleeve VSS Nausea improving Pain controlled Will DC [employer] and start oral pain meds Continue with ambulation, nausea meds as needed and clear liquids When patient tolerating clear liquids, may be DC'd home DONNA BRIGGS ZOO CARETAKER Sep 28, 2022 13:21
--- NOTE | 2022-09-28 14:33 | Anesthesia-General Post-Op ---
MAC Patient Condition Mental Status/LOC: Same as Preop Cardiovascular: Satisfactory Nausea/Vomiting: Absent Respiratory: Satisfactory Pain: Controlled Complications: Absent Post Op Complications Complications None Follow Up Care/Instructions Patient Instructions None needed. Anesthesiology Discharge Order Discharge Order Patient is doing well, no complaints, stable vital signs, no apparent adverse anesthesia problems. She is ready for discharge to home. No complications reported per nursing. JASON SON DO Sep 28, 2022 14:33
[2022-09-28 15:09] VITALS: BP 140/85
[2022-09-28] MEDS ORDERED: DEXA4TAB PO (15:56)
== END 2022-09-28 16:48 | disposition home or self-care (01) ==
LOC: SDC 09:52 → 4TH 13:00 → SDC 09-28 16:48
PROVIDERS: ATTEND Surgery
DX: E66.01 Morbid (severe) obesity due to excess calories (principal); K29.50 Unspecified chronic gastritis without bleeding; F32.A Depression, unspecified; Z68.37 Body mass index [BMI] 37.0-37.9, adult
CPT/HCPCS: 36415; 80048; 84703; 85027; 87081; 94640; 94760

== ENCOUNTER → 2022-10-01 | Outpatient (CLI) | payer BC ==
[~2022-10-01] VITALS: Ht 154 cm; Wt 86.6 kg
[~2022-10-01] MED LIST changes: +DEXA4TAB PO; +NS IV 1000 ML 1,000 ML IV SCH; +NS IV 1000 ML 1,000 ML ONE; +PANTOPRAZOLE 40 MG (PROTONIX) VIAL IV ONE
[2022-10-01 10:12] LABS: HEMATOCRIT 46 % (35-52); HEMOGLOBIN 16.4 g/dL (11.5-16.0); MEAN CORPUSCULAR HEMOGLOBIN 29 pg (25-34); MEAN CORPUSCULAR HGB CONC 36 g/dL (32-36); MEAN CORPUSCULAR VOLUME 82 fL (80-99); MEAN PLATELET VOLUME 12.1 fL (9.0-12.2); PLATELET COUNT 188 10^3/uL (130-400); WHITE BLOOD COUNT 8.8 10^3/uL (4.3-11.0)
[2022-10-01 10:24] VITALS: BP 130/89
[2022-10-01 10:31] LABS: ALANINE AMINOTRANSFERASE 44 U/L (0-55); ALBUMIN 4.7 GM/DL (3.2-4.5); ALKALINE PHOSPHATASE 92 U/L (40-136); BILIRUBIN,TOTAL 0.7 MG/DL (0.1-1.0); BUN/CREATININE RATIO 22; CALCIUM 10.7 MG/DL (8.5-10.1); CARBON DIOXIDE 20 MMOL/L (21-32); CHLORIDE 103 MMOL/L (98-107); CREATININE SERUM 0.82 MG/DL (0.60-1.30); GFR ESTIMATED 99; GLUCOSE 107 MG/DL (70-105); SODIUM 138 MMOL/L (135-145)
[2022-10-01 10:37] LABS: POTASSIUM 3.5 MMOL/L (3.6-5.0)
== END ==
LOC: SDC 09:39
PROVIDERS: ATTEND Nurse Practitioner Family
DX: E86.0 Dehydration (principal); R39.12 Poor urinary stream; R53.83 Other fatigue
CPT/HCPCS: 36415; 80053; 85027; 96360; 96374